=== PATIENT | male | born 1945 | race Caucasian/White ===

== ENCOUNTER 2018-05-11 13:57 | Emergency (ER) | payer MEDICARE, OTHER, SELFPAY ==
[2018-05-11] VITALS (11 sets, daily range): BP systolic 135–154; BP diastolic 62–90; PULSE 70–88; RESP 14–26; TEMP 36.5; O2SAT 92–98
--- NOTE | 2018-05-11 15:14 | ED.GENADUL_ITS ---
Discharge Plan Disposition Patient Disposition: HOME Discharge Details Chief Complaint: GenMedical Clinical Impression: Hypertension, Bilateral hand swelling, Sinus congestion Primary Care Provider: Eduard Merritt ED Provider: Jose Lopez Home Meds and New Rx's Prescriptions: Continue metformin 500 MG tablet 500 mg PO BID Qty: 180 RF: 3 atorvastatin [Lipitor] 80 MG tablet 80 mg PO QPM Qty: 90 RF: 3 nitroglycerin 0.4 MG tablet, sublingual 0.4 mg Sublingual PRN Qty: 25 RF: 6 Metoprolol Succinate 50 MG TAB.ER.24H 50 mg PO DAILY Qty: 90 RF: 3 indomethacin 50 MG capsule 50 mg PO TID PRNQty: 20 RF: 3 sildenafil (antihypertensive) [Revatio] 20 MG tablet 60 mg PO DAILY PRNQty: 30 RF: 2 allopurinol 300 mg tablet 150 mg PO DAILY Qty: 45 RF: 3 aspirin 81 MG tablet,chewable 81 mg CH DAILY RF: 0 Discontinued ibuprofen 200 MG tablet 400 mg PO PRN RF: 0 Discharge Instructions Instructions: Hypertension (ED) Additional Instructions: Your creatinine level was elevated today from prior. Your creatinine level today was 1.42 today. Avoid taking antihistamines including Zyrtec given concerns for adverse reaction. Please contact your primary care physician to arrange follow-up. Repeat labs will need to be done and followed up by your doctor. Return to the ER for any worsening or new concerning symptoms. Referrals: Eduard Merritt DO [Primary Care Provider] - Medical Decision Making 73-year-old male with multiple medical problems including hypertension, here with sinus congestion since yesterday that did not improve his Zyrtec. No sinus tendernes, fever or signs of focal bacterial infection. Patient notes that he had some swelling of his hands bilaterally today and is concerned this may be a side effect of the Zyrtec. No rash or airway edema. Hands no longer swollen. Patient neglected to take his antihypertensive medication this morning and had elevated blood pressure today. He did take prescribed antihypertensives around 130 this afternoon and blood pressure has improved. I suspect hypertension was related to medication noncompliance but given recent hand swelling, consider acute renal insufficiency. Screening labs were checked and creatinine is slightly elevated at 1.42 (this has increased from prior 1.0 on 09/24/14). Plan to have patient maintain compliance with antihypertensive medication. He has outpatient follow-up scheduled at [place] early next month. I advised him to follow-up with PCP sooner to determine timing of repeat labs. Disposition decision was made weighing the risks and benefits of hospitalization versus outpatient treatment, the risk for further decompensation , and the patient's wishes. The patient was stable and requested discharge. Prior to discharge, my usual and customary return precautions were reviewed with the patient - this included follow-up instructions and reason to return to the emergency department if condition worsens, does not improve as expected, or other new concerns arise. HPI General Mode of arrival: ambulatory . Date/Time Provider Initiated Documentation: 05/11/18 14:50 . Limitations to Documentation: no limitations . Information obtained by: patient and family . HPI Narrative: 73-year-old male with mulitple medical problems including history of HTN, here with chief complaint of sinus congestion. Patient notes that he started to experience sinus congestion last night. He notes that he has been fatigued and generally not feeling well. He took some Zyrtec last night to help with sinus congestion. This did not relieve his symptoms. Patient noted he had some hand swelling this morning. And swelling has improved. No associated rash. Patient also notes that today's blood pressure was quite elevated with a systolic of 220. He forgot to take his prescribed antihypertensive this morning. He did take it today around 130 and blood pressure has improved. He denies associated chest pain or shortness of breath. Related Data Home Medications Medication Instructions Recorded Confirmed aspirin 81 mg CH DAILY 08/18/12 05/11/18 metformin 500 mg PO BID #180 tab 10/10/17 05/11/18 atorvastatin [Lipitor] 80 mg PO QPM #90 tab 12/01/17 05/11/18 nitroglycerin 0.4 mg SUBLINGUAL PRN #25 tab 12/01/17 05/11/18 indomethacin 50 mg PO TID PRN #20 cap 12/08/17 05/11/18 sildenafil (antihypertensive) 60 mg PO DAILY PRN #30 tab-cap 12/08/17 05/11/18 [Revatio] allopurinol 300 mg tablet 150 mg PO DAILY #45 tab 02/24/18 05/11/18 Previous Rx's Medication Instructions Recorded metformin 500 mg PO BID #180 tab 10/10/17 atorvastatin [Lipitor] 80 mg PO QPM #90 tab 12/01/17 nitroglycerin 0.4 mg SUBLINGUAL PRN #25 tab 12/01/17 allopurinol 300 mg tablet 150 mg PO DAILY #45 tab 02/24/18 Allergies Allergy/AdvReac Type Severity Reaction Status Date / Time simvastatin AdvReac Intermediate JOINT PAIN Unverified 05/11/18 14:12 MRI contrast media Allergy Unknown Uncoded 05/11/18 14:12 General Stated Complaint: GenMedical CONSTANTINO: 3 Review of Systems Review of Systems All systems reviewed & are unremarkable except as noted in HPI and below Cardiovascular Denies chest pain and Denies dyspnea Respiratory Denies dyspnea PFSH Family History Father Diabetes Mother No problems noted. Medical History Diabetes mellitus type 2 in obese Hypertension Social History Smoking/Tobacco Use Status: Former Tobacco Use Surgical History Coronary Stent (02/18/09) Repair of inguinal hernia (11/20/14) Exam Const General: cooperative and no acute distress HENMT Head: normocephalic and atraumatic Ears: external ears normal and TM's normal bilaterally General nose exam: external nose normal, nares normal and no nasal discharge Face and sinus: sinuses nontender Mouth: oral mucosae normal and moist mucous membranes Throat: posterior oropharynx normal Eyes Conjunctivae: normal conjunctivae Sclera: normal sclerae EOM: EOM intact bilaterally Resp Auscultation: clear to auscultation bilaterally, no rales, no rhonchi and no wheezes Cardio Jugular venous pressure: no JVD Rate: regular rate and not tachycardic Rhythm: regular rhythm Heart Sounds: murmur systolic I/ GI Palpation: soft, not firm, no guarding, no masses, not rigid and nontender Skin General skin exam: no rashes or lesions noted Neuro General: alert, awake, oriented x3 and tone normal Cranial Nerves: CN's II-XI intact bilaterally, PERRL and EOM intact bilaterally Cognition: normal cognition Speech: speech normal Motor: strength 5/5 throughout Sensory Exam: no sensory deficits noted Extrem General: no edema Psych Appearance: grossly normal Mental Status: mental status grossly normal Speech and Movement: speech and movement normal Course Vital Signs Temperature 36.5 C 11/22/18 14:07 Pulse 79 05/11/18 14:07 Respiratory Rate 16 05/11/18 14:07 Blood Pressure 154/90 H 05/11/18 14:07 Pulse Oximetry 98 05/11/18 14:07 Temperature 36.5 C 05/11/18 14:07 Temperature Source Skin 05/11/18 14:07 Pulse 79 05/11/18 14:07 Respiratory Rate 18 05/11/18 14:28 Respiratory Effort 05/11/18 14:28 Respiratory Depth Normal 05/11/18 14:28 Respiratory Pattern Normal 05/11/18 14:28 Blood Pressure 154/90 H 05/11/18 14:07 Blood Pressure Position Sitting 05/11/18 14:07 Pulse Oximetry 98 05/11/18 14:07 Oxygen Delivery Method Room Air 05/11/18 14:07 Oxygen Flow Rate 0 05/11/18 14:07 Pain Level 0 05/11/18 14:07
[2018-05-11 15:29] LABS: HCT 42.1 % (40.0-50.0); Mean Corp. HGB Concentration 33.3 g/dL (32.0-36.0); Mean Corpuscular Hemoglobin 32.6 pg (27.0-33.0); Mean Corpuscular Volume 97.9 fL (80-95); Mean Platelet Volume 8.7 fL (8.0-11.0); Platelet Count 213 x1000/uL (130-400); RBC Distribution Width 12.5 % (11.8-14.1); White Blood Cell Count 7.31 k/cumm (4.4-10.8)
--- NOTE | 2018-05-11 15:34 | NUR.NOTE ---
Assumed care of patient, ambulatory to restroom, steady gait, in no distress. VSS, updated. Call arthur in reach, will monitor.
[2018-05-11 15:36] LABS: Anion Gap 9.8 mmol/L (3-11); BUN 19 mg/dL (7-18); CO2 28.2 mmol/L (21.0-32.0); CREATININE 1.42 mg/dL (0.70-1.30); Chloride 100 mmol/L (98-107); Estimated GFR 49.01 (mL/min/1.73m2); Glucose 112 mg/dL (70-100); Potassium 3.9 mmol/L (3.5-5.1); Sodium 138 mmol/L (136-145)
== END 2018-05-11 16:10 | disposition home or self-care (01) ==
PROVIDERS: Emergency Provider Student in an Organized Health Care Education/Training Program; PCP Family Medicine
DX: I10 Essential (primary) hypertension (principal); R60.0 Localized edema; R09.81 Nasal congestion; R94.4 Abnormal results of kidney function studies; E11.9 Type 2 diabetes mellitus without complications; Z79.84 Long term (current) use of oral hypoglycemic drugs
CPT/HCPCS: 36415; 80048; 85027; 99284

== ENCOUNTER 2018-06-05 11:07 | Outpatient (CLI) | payer MEDICARE, OTHER, SELFPAY ==
--- NOTE | 2018-06-05 11:18 | DI.RAD_ITS ---
SYMPTOM/DIAGNOSIS: B/L HAND SWELLING POLYARTHRITIS, M13.0 BILATERAL HAND SERIES FOR INFLAMMATORY JOINT DISEASE: The bony structures are normally mineralized. There are mild periarticular degenerative changes involving the interphalangeal and carpal/metacarpal joints. There are no periarticular erosions or soft tissue calcifications and there is nothing to suggest inflammatory joint disease in this patient. These findings to be correlated with the physical examination and appropriate laboratory results.
[2018-06-05 13:09] LABS: C-Reactive Protein 2.91 mg/dL (0.0-0.3)
[2018-06-06 10:44] LABS: Rheumatoid Factor 9 IU/mL (<12.5)
[2018-06-06 12:22] LABS: Lyme Ab w Rflx to Lyme Confirm Negative
[2018-06-06 21:57] LABS: Anaplasma phagocytophilum Negative (Negative); B. miyamotoi PCR Negative (Negative); Babesia divergens/MO-1 Negative (Negative); Babesia duncani Negative (Negative); Babesia microti Negative (Negative); Ehrlichia chaffeensis Negative (Negative); Ehrlichia ewingii/canis Negative (Negative); Ehrlichia muris eauclairensis Negative (Negative)
== END 2018-06-05 11:27 ==
PROVIDERS: PCP Family Medicine; Visit Provider Family Medicine
DX: M19.041 Primary osteoarthritis, right hand; M19.042 Primary osteoarthritis, left hand; M13.0 Polyarthritis, unspecified; M79.89 Other specified soft tissue disorders
CPT/HCPCS: 36415; 73120; 86140; 86431; 86618; 87798

== ENCOUNTER 2018-08-08 18:13 | Outpatient (CLI) | payer MEDICARE, OTHER, SELFPAY ==
--- NOTE | 2018-08-08 10:42 | DI.RAD_ITS ---
SYMPTOMS/DIAGNOSIS: POLYARTHRALGIA, M25.50, GOUTY ARTHRITIS, M10.9, H/O GOUT 20 YRS, RECENT EPISODES OF MARIS JOINT SWELLING, PAIN, STIFFNESS IN HANDS, ? GOUT VS OTHER INFLAMMATORY ARTHROPLASTY VS RA RIGHT FOOT: Three views. No priors. The bones are intact and normally mineralized. No suspicious lytic or sclerotic lesions are seen. No acute fractures or subluxations are seen. The first metatarsal phalangeal joint is well maintained. No erosions are seen. No significant soft tissue swelling is seen about the first metatarsal phalangeal joint. The interphalangeal joints are well maintained. There is a small spur at the plantar surface of the calcaneus. Vascular calcifications are present. IMPRESSION: Grossly unremarkable right foot. No radiographic findings to suggest changes of gouty arthritis. LEFT FOOT: Three views. At the first metatarsal phalangeal joint there is mild joint space narrowing and periarticular spurring consistent with osteoarthritis. No erosions are seen. No significant joint swelling is seen about the foot to suggest gouty arthritic changes. At the interphalangeal joints of the foot there are varying degrees of joint space narrowing and periarticular spurring present. The metatarsal phalangeal joints are otherwise well maintained. The bones are intact and normally mineralized. Vascular calcifications are seen in the soft tissues. Mild degenerative changes are also noted at the articulation between the sesamoid and the first metatarsal head. IMPRESSION: Osteoarthritis of the left foot.
[2018-08-08 11:29] LABS: HCT 41.5 % (40.0-50.0); HGB 13.6 g/dL (13.5-17.5); Mean Corp. HGB Concentration 32.8 g/dL (32.0-36.0); Mean Corpuscular Hemoglobin 31.4 pg (27.0-33.0); Mean Corpuscular Volume 95.8 fL (80-95); Mean Platelet Volume 9.3 fL (8.0-11.0); Platelet Count 220 x1000/uL (130-400); RBC 4.33 m/cumm (4.50-6.00); RBC Distribution Width 13.5 % (11.8-14.1); White Blood Cell Count 6.86 k/cumm (4.4-10.8)
[2018-08-08 12:37] LABS: ESR 10 MM/HR (1-20)
[2018-08-08 13:29] LABS: ALT 26 U/L (12-78); AST 17 U/L (15-37); Albumin 3.8 g/dL (3.4-5.0); Alkaline Phosphatase 58 U/L (46-116); Anion Gap 7.6 mmol/L (3-11); BUN 23 mg/dL (7-18); Bilirubin, Total 0.7 mg/dL (0.2-1.0); CO2 28.4 mmol/L (21.0-32.0); CREATININE 0.81 mg/dL (0.70-1.30); Calcium 8.9 mg/dL (8.5-10.1); Chloride 105 mmol/L (98-107); Glucose 91 mg/dL (70-100); Potassium 4.6 mmol/L (3.5-5.1); Sodium 141 mmol/L (136-145); Total Protein 6.8 g/dL (6.4-8.2); Uric Acid 4.2 mg/dL (3.5-7.2)
[2018-08-09 10:26] LABS: Cyclic Citrullinated Peptide <2.5 U/mL (<5.0)
[2018-08-10 11:04] LABS: C-Peptide 5.8 ng/mL (1.1 - 4.4)
== END 2018-08-08 18:33 ==
PROVIDERS: PCP Family Medicine; Visit Provider Internal Medicine Rheumatology
DX: M25.50 Pain in unspecified joint (principal); M10.9 Gout, unspecified; N28.9 Disorder of kidney and ureter, unspecified; M79.671 Pain in right foot; M79.672 Pain in left foot; M19.072 Primary osteoarthritis, left ankle and foot
CPT/HCPCS: 36415; 80053; 85027; 85652; 86200; 73630; 84550; 84681

== ENCOUNTER 2020-07-07 02:08 | Outpatient (CLI) | payer MEDICARE, OTHER, SELFPAY ==
[2020-07-08 12:40] LABS: COVID-19 RT-PCR UVMMC Result Negative (Negative)
== END 2020-07-07 02:28 ==
PROVIDERS: PCP Family Medicine; Visit Provider Family Medicine
DX: Z20.822 Contact with and (suspected) exposure to COVID-19 (principal)
CPT/HCPCS: U0003

== ENCOUNTER 2020-11-20 03:10 | Outpatient (CLI) | payer MEDICARE, OTHER, SELFPAY ==
[2020-11-20 08:36] LABS: Calculated LDL 110 mg/dL (<100); Cholesterol 196 mg/dL (<200); HDL Cholesterol 54 mg/dL (40-60); Triglyceride 160 mg/dL (<150)
== END 2020-11-20 03:11 | disposition home or self-care (01) ==
LOC: LBO 03:10
PROVIDERS: PCP Family Medicine; Visit Provider Family Medicine
DX: I25.10 Atherosclerotic heart disease of native coronary artery without angina pectoris (principal)
CPT/HCPCS: 36415; 80061

== ENCOUNTER 2020-12-11 03:04 | Outpatient (CLI) | payer MEDICARE, OTHER, SELFPAY ==
--- NOTE | 2020-12-11 07:15 | DI.US_ITS ---
Exam(s) US AAA SCREENING EXAM: US AAA SCREENING CLINICAL HISTORY: SCREENING FOR AAA, FORMER SMOKER, Z87.891 COMPARISON: No exams were available for comparison FINDINGS: Abdominal Aorta: Proximal: 2.1 x 2.3 cm Mid: 1.8 x 2.1 cm Distal: 1.8 x 1.8 cm Iliac's: Right: 1.5 cm Left: 1.5 cm Mild plaque evident. IMPRESSION: No evidence of abdominal aortic aneurysm. DATA REPOSITORY:
== END 2020-12-11 03:24 ==
PROVIDERS: PCP Family Medicine; Visit Provider Family Medicine
DX: Z13.6 Encounter for screening for cardiovascular disorders (principal); Z87.891 Personal history of nicotine dependence
CPT/HCPCS: 76706

== ENCOUNTER 2024-01-23 16:14 | Emergency (ER) | payer MEDICARE, SELFPAY ==
[2024-01-23] VITALS (76 sets, daily range): BP systolic 74–170; BP diastolic 34–117; PULSE 52–71; RESP 8–24; TEMP 36.8; O2SAT 98
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
[2024-01-23 16:57] LABS: BE (Venous) -1 mmol/L (-2-3); HCO3 (Venous) 24 mmol/L (23-28); Lactate 1.8 mmol/L (0.6-1.4); O2 Sat (Venous) 68 %; TCO2 (Venous) 22 mmol/L (24-29); pCO2 (Venous) 38 mmHg (41-51); pO2 (Venous) 35 mmHg
[2024-01-23 17:06] LABS: Abs Immature Grans 0.13 10^3/uL (0.0-0.06); Absolute Basophil Count 0.04 10^3/uL (0.0-0.2); Absolute Monocyte Count 1.07 10^3/uL (0.1-0.8); Basophils % 0.3 %; Eosinophils % 0.5 %; HCT 40.9 % (40.0-50.0); HGB 13.6 g/dL (13.5-17.5); Immature Grans % 0.9 %; Lymphocytes % 11.4 %; MCH 33.5 pg (27.0-33.0); MCHC 33.3 % (32.0-36.0); MCV 101 fL (80-95); MPV 9.7 fL (8.0-11.0); Monocytes % 7.3 %; Neutrophils % 79.6 %; Platelet Count 198 10^3/uL (130-400); RBC 4.06 10^6/uL (4.36-5.78); RDW 13.2 % (11.8-14.1); RDW-SD 49.1 fL; WBC 14.59 10^3/uL (4.4-10.8)
[2024-01-23 17:07] LABS: Absolute Eosinophil Count 0.07 10^3/uL (0.0-0.7); Absolute Lymphocyte Count 1.66 10^3/uL (1.2-3.4); Absolute Neutrophil Count 11.61 10^3/uL (1.2-6.7)
[2024-01-23 17:19] LABS: ALT 39 U/L (16-63); AST 31 U/L (15-37); Albumin 3.7 g/dL (3.4-5.0); Alkaline Phosphatase 73 U/L (46-116); Anion Gap 9.5 mmol/L (3-11); BUN 22 mg/dL (7-18); Bilirubin, Total 0.49 mg/dL (0.2-1.0); CO2 24.5 mmol/L (21.0-32.0); CREATININE 1.5 mg/dL (0.70-1.30); Calcium 8.9 mg/dL (8.5-10.1); Chloride 106 mmol/L (98-107); Estimated GFR 47.65 (mL/min/1.73m2); Glucose 142 mg/dL (74-106); Lipase 40 U/L (16-77); Potassium 4.3 mmol/L (3.5-5.1); Sodium 140 mmol/L (136-145)
[2024-01-23 17:22] LABS: PTT Activated 23.4 sec (23.6-32.8); Prothrombin Time 10.2 sec (9.1-11.1)
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
[2024-01-23] MEDS: Normal Saline 1,000 ML 1000 ML IV (17:42)
[2024-01-23] MEDS: Lidocaine 2% Jelly 6 ML SYR (18:39)
[2024-01-23 19:32] LABS: Bilirubin Negative (Negative); Blood Trace-intact (Negative); Clarity Clear (Clear); Glucose 500 mg/dL (Negative); Ketones Negative (Negative); Leukocyte Esterase Negative (Negative); Nitrite Negative (Negative); Specific Gravity 1.015 (1.005-1.025); Urobilinogen 0.2 mg/dL (Up to 0.2); pH 5.5 (5-8)
[2024-01-23 19:34] LABS: Bacteria Negative HPF (Negative); Crystals Negative HPF (Negative)
[2024-01-23 19:45] LABS: WBC Negative HPF (0-5)
[2024-01-23 19:47] LABS: Epithelial Cells Rare HPF (Negative); Other Cells Negative (Negative); RBC 0-2 HPF (0-2)
[2024-01-23 19:48] LABS: C & S Indicated? No; Casts 0-2 Hyaline LPF (Negative); Mucus Negative (Negative)
[2024-01-23] MEDS: Ketorolac 15 MG/ML VIAL IVP (20:40)
[2024-01-23] MEDS: ACETAMINOPHEN 1,000 MG/100 ML BTL 400 MG IVPB (20:40)
[2024-01-24] VITALS: PULSE 54; RESP 15
[2024-01-24 00:01] VITALS: BP 137/68; PULSE 53; PULSE 55; RESP 13
[2024-01-24 00:10] VITALS: PULSE 56; RESP 14
[2024-01-24 00:16] VITALS: BP 144/72; PULSE 62
[2024-01-24 00:23] VITALS: O2SAT 98
[2024-01-24 20:20] LABS: Amylase 35 U/L (25-115)
== END 2024-01-24 00:27 | disposition short-term general hospital (02) ==
PROVIDERS: Emergency Provider Physician Assistant; PCP Family Medicine
DX: S32.012A Unstable burst fracture of first lumbar vertebra, initial encounter for closed fracture (principal); I10 Essential (primary) hypertension; I25.10 Atherosclerotic heart disease of native coronary artery without angina pectoris; E11.9 Type 2 diabetes mellitus without complications; E78.00 Pure hypercholesterolemia, unspecified; Z95.5 Presence of coronary angioplasty implant and graft; Z79.84 Long term (current) use of oral hypoglycemic drugs; W31.89XA Contact with other specified machinery, initial encounter; Y93.89 Activity, other specified; Y92.89 Other specified places as the place of occurrence of the external cause
CPT/HCPCS: 36415; 51702; 80053; 82805; 83690; 96361; 96374; 96375; 99285; 72131; 72192; 81003; 81015; 82150; 83605; 85025; 85610; 85730; J0131; J1885

== ENCOUNTER 2024-01-23 18:22 | Emergency (ER) | payer MEDICARE, SELFPAY | END 2024-01-23 18:47 | LOC: ER 01-24 11:49 | PROVIDERS: Emergency Provider Physician Assistant; PCP Family Medicine | DX: S32.001A Stable burst fracture of unspecified lumbar vertebra, initial encounter for closed fracture (principal); V85.5XXA Driver of special construction vehicle injured in nontraffic accident, initial encounter | CPT/HCPCS: 36415; 51702; 96361; 96374; 99285 ==

== ENCOUNTER 2024-03-19 18:13 | Outpatient (REF) | payer MEDICARE, SELFPAY ==
[2024-03-19 17:45] LABS: Abs Immature Grans 0.03 10^3/uL (0.0-0.06); Absolute Basophil Count 0.02 10^3/uL (0.0-0.2); Absolute Eosinophil Count 0.33 10^3/uL (0.0-0.7); Absolute Lymphocyte Count 2.61 10^3/uL (1.2-3.4); Absolute Monocyte Count 0.75 10^3/uL (0.1-0.8); Absolute Neutrophil Count 6.65 10^3/uL (1.2-6.7); Basophils % 0.2 %; Eosinophils % 3.2 %; HCT 29.8 % (40.0-50.0); HGB 9.4 g/dL (13.5-17.5); Immature Grans % 0.3 %; Lymphocytes % 25.1 %; MCH 32.3 pg (27.0-33.0); MCHC 31.5 % (32.0-36.0); MCV 102 fL (80-95); MPV 9.3 fL (8.0-11.0); Monocytes % 7.2 %; Platelet Count 291 10^3/uL (130-400); RBC 2.91 10^6/uL (4.36-5.78); RDW 13.2 % (11.8-14.1); RDW-SD 49.4 fL; WBC 10.39 10^3/uL (4.4-10.8)
[2024-03-19 17:55] LABS: ALT 19 U/L (16-63); AST 18 U/L (15-37); Albumin 3.2 g/dL (3.4-5.0); Alkaline Phosphatase 76 U/L (46-116); BUN 27 mg/dL (7-18); Bilirubin, Total 0.34 mg/dL (0.2-1.0); C-Reactive Protein 0.97 mg/dL (<or=0.5); Calcium 9.4 mg/dL (8.5-10.1); Chloride 100 mmol/L (98-107); Estimated GFR 77.04 (mL/min/1.73m2); Glucose 130 mg/dL (74-106); Sodium 135 mmol/L (136-145); Total Protein 7.4 g/dL (6.4-8.2)
== END 2024-03-19 18:14 | disposition home or self-care (01) ==
LOC: LBN 18:13
PROVIDERS: PCP Family Medicine; Visit Provider Internal Medicine Infectious Disease
DX: Z79.2 Long term (current) use of antibiotics (principal)
CPT/HCPCS: 80053; 85025; 86140

== ENCOUNTER 2024-07-19 05:10 | Observation (INO) | payer MEDICARE, SELFPAY ==
[2024-07-19] VITALS (50 sets, daily range): BP systolic 115–172; BP diastolic 46–70; PULSE 79–99; RESP 12–35; TEMP 35.9–37.2; O2SAT 89–100
--- NOTE | 2024-07-19 05:00 | RT.EKG_ITS ---
APPROVED REPORT Exam: Resting ECG Reason for Exam: short of breath Patient Location: E HR:83 bpm ECG Measurements Heart Rate 83 AXIS OH 171 P 4 QRSd 100 QRS -1 QT 393 T -32 QTc 462 Conclusion Sinus rhythm...normal P axis, V-rate 60- 99 Non-specific T-wave flattening somewhat globally without obvious pattern injury ischemia
--- NOTE | 2024-07-19 05:35 | NUR.NOTE ---
EKG order was put in prior to patient arriving to Emergency Department.
[2024-07-19 06:09] LABS: COVID-19 PCR Negative (Negative); Influenza A PCR Negative (Negative); Influenza B PCR Negative (Negative); RSV PCR Negative (Negative)
[2024-07-19 06:10] LABS: Source Nasopharynx
[2024-07-19 06:11] LABS: Abs Immature Grans 0.02 10^3/uL (0.0-0.06); Absolute Basophil Count 0.03 10^3/uL (0.0-0.2); Absolute Eosinophil Count 0.12 10^3/uL (0.0-0.7); Absolute Monocyte Count 0.58 10^3/uL (0.1-0.8); Absolute Neutrophil Count 5.77 10^3/uL (1.2-6.7); Basophils % 0.4 %; Eosinophils % 1.4 %; HCT 36.4 % (40.0-50.0); HGB 11.2 g/dL (13.5-17.5); Immature Grans % 0.2 %; Lymphocytes % 23.5 %; MCH 30.7 pg (27.0-33.0); MCHC 30.8 % (32.0-36.0); MCV 100 fL (80-95); MPV 10.2 fL (8.0-11.0); Monocytes % 6.8 %; Neutrophils % 67.7 %; Platelet Count 194 10^3/uL (130-400); RBC 3.65 10^6/uL (4.36-5.78); RDW 14.8 % (11.8-14.1); RDW-SD 53.8 fL; WBC 8.52 10^3/uL (4.4-10.8)
[2024-07-19 06:19] LABS: Lactate 1.2 mmol/L (<or=2.0)
[2024-07-19] MEDS: Albuterol/Ipratropium 3 ML UPD VIAL UPD ×2 (06:19→17:39)
[2024-07-19] MEDS: methylPREDNISolone SUCC 125 MG VIAL 60 MG IVP (06:19)
[2024-07-19 06:27] LABS: Anion Gap 8.1 mmol/L (3-11); BUN 24 mg/dL (7-18); CO2 26.9 mmol/L (21.0-32.0); CREATININE 1.4 mg/dL (0.70-1.30); Calcium 9.3 mg/dL (8.5-10.1); Chloride 109 mmol/L (98-107); Estimated GFR 51.45 (mL/min/1.73m2); Glucose 115 mg/dL (74-106); NT-proBNP 20791 pg/mL (<300); Potassium 4.1 mmol/L (3.5-5.1); Sodium 144 mmol/L (136-145); Troponin I 34 ng/L (<or=76)
--- NOTE | 2024-07-19 07:16 | ED.GENADUL_ITS ---
Discharge Plan Disposition Patient Disposition: Admit to [facility] Condition: Fair Discharge Details Chief Complaint: RespSymp Clinical Impression: LLL pneumonia, Congestive heart failure (CHF) Primary Care Provider: Eduard Merritt ED Provider: Kris Kemp Home Meds and New Rx's Prescriptions: No Action empagliflozin 25 mg tablet 12.5 mg PO DAILY Patient Comments: WENDIE is RXing this.HE metformin 500 mg tablet See Rx Instructions .ROUTE .COMPLEX Qty: 180 3RF Dose Instruction: TAKE ONE TABLET BY MOUTH TWICE A DAY FOR METABOLIC SYNDROME Rx Instructions: TAKE ONE TABLET BY MOUTH TWICE A DAY FOR METABOLIC SYNDROME metoprolol succinate 50 mg tablet extended release 24 hr 50 mg PO DAILY Qty: 90 3RF nitroglycerin 0.4 mg tablet, sublingual 0.4 mg Sublingual Q5-15M PRN (Reason: chest pain/angina) Qty: 25 6RF Rx Instructions: as directed for chest pressure, angina naproxen 500 mg tablet 500 mg PO BID PRN (Reason: pain) Qty: 60 1RF Rx Instructions: Take for non-gout pain atorvastatin [Lipitor] 80 mg tablet 80 mg PO QPM Qty: 90 3RF Rx Instructions: to control cholesterol acetaminophen 325 mg tablet See Rx Instructions PO Q6H PRN Rx Instructions: 3 tablets orally every 6 hours PRN; cholecalciferol (vitamin D3) 10 mcg (400 unit) capsule 20 mcg PO DAILY cyanocobalamin (vitamin B-12) 1,000 mcg tablet 1,000 mcg PO DAILY Lactobacillus acidophilus Capsule 10 mg PO DAILY lisinopril 20 mg tablet 20 mg PO DAILY polyethylene glycol 3350 17 gram/dose powder 17 g PO DAILY colchicine 0.6 mg tablet 0.6 mg PO DAILY sennosides-docusate sodium [Senna with Docusate Sodium] 8.6-50 mg tablet 2 tab-cap PO BID PRN tamsulosin 0.4 mg capsule 0.4 mg PO DAILY aspirin 81 MG tablet,chewable 81 mg CH DAILY allopurinol 300 mg tablet 300 mg PO DAILY HPI General Date/Time Provider Initiated Documentation: 07/19/24 05:20 . HPI Narrative: The patient is a 79-year-old male, who presents the emergency department this evening complaining of increasing shortness of breath over the course the last week. The patient states that yesterday he went shopping with his and walked 30 feet from his apartment into the home with 2 grocery bags and was so short of breath that he had to sit down and use his 's home oxygen to help himself recover. The patient reports that he has been having a significant amount of coughing over the course of the same timeframe. He felt like he was wheezing significantly both yesterday and again this morning. He was unable to sleep secondary to shortness of breath. The patient states that he is able to cough up phlegm which then makes him able to tolerate breathing a little bit better for a short period of time before he begins coughing again. The patient denies having any known fevers or chills. The patient says he feels like he has pneumonia, similar to when he was at [facility] last summer. Related Data Home Medications ?Medication ?Instructions ?Recorded ?Confirmed aspirin 81 mg chewable tablet 81 mg CH DAILY 08/18/12 07/19/24 naproxen 500 mg tablet 500 mg PO BID PRN pain #60 tabs 02/15/20 07/19/24 atorvastatin 80 mg tablet (Lipitor) 80 mg PO QPM #90 tabs 08/22/23 07/19/24 metformin 500 mg tablet See Rx Instructions .Route 09/05/23 07/19/24 .COMPLEX #180 tabs metoprolol succinate 50 mg 50 mg PO DAILY #90 tabs 09/05/23 07/19/24 tablet,extended release 24 hr nitroglycerin 0.4 mg sublingual 0.4 mg sublingual Q5-15M PRN chest 09/05/23 07/19/24 tablet pain/angina #25 tabs empagliflozin 25 mg tablet 12.5 mg PO DAILY 12/01/23 07/19/24 allopurinol 300 mg tablet 300 mg PO DAILY 01/23/24 07/19/24 Lactobacillus acidophilus 10 mg PO DAILY 03/16/24 07/19/24 acetaminophen 325 mg tablet See Rx Instructions PO Q6H PRN 03/16/24 07/19/24 cholecalciferol (vitamin D3) 10 20 mcg PO DAILY 03/16/24 07/19/24 mcg (400 unit) capsule colchicine 0.6 mg tablet 0.6 mg PO DAILY 03/16/24 07/19/24 cyanocobalamin (vitamin B-12) 1,000 mcg PO DAILY 03/16/24 07/19/24 1,000 mcg tablet lisinopril 20 mg tablet 20 mg PO DAILY 03/16/24 07/19/24 polyethylene glycol 3350 17 17 g PO DAILY 03/16/24 07/19/24 gram/dose oral powder sennosides 8.6 mg-docusate sodium 2 tab-cap PO BID PRN 03/16/24 07/19/24 50 mg tablet (Senna with Docusate Sodium) tamsulosin 0.4 mg capsule 0.4 mg PO DAILY 03/16/24 07/19/24 Previous Rx's ?Medication ?Instructions ?Recorded naproxen 500 mg tablet 500 mg PO BID PRN pain #60 tabs 02/15/20 atorvastatin 80 mg tablet (Lipitor) 80 mg PO QPM #90 tabs 08/22/23 metformin 500 mg tablet See Rx Instructions .Route 09/05/23 .COMPLEX #180 tabs metoprolol succinate 50 mg 50 mg PO DAILY #90 tabs 09/05/23 tablet,extended release 24 hr nitroglycerin 0.4 mg sublingual 0.4 mg sublingual Q5-15M PRN chest 09/05/23 tablet pain/angina #25 tabs Allergies Allergy/AdvReac Type Severity Reaction Status Date / Time simvastatin AdvReac Intermediate JOINT PAIN Verified 07/19/24 05:17 glimepiride AdvReac Diarrhea Verified 07/19/24 05:17 MRI contrast media Allergy Unknown unknown Uncoded 07/19/24 05:17 General Stated Complaint: RespSymp CONSTANTINO: 4 Exam Const General: cooperative and no acute distress Resp Effort & Inspection: normal respiratory effort and able to speak in complete sentences Auscultation: wheezes scattered wheezes Cardio Rate: regular rate Rhythm: regular rhythm GI Inspection: normal to inspection Palpation: soft Auscultation: normal bowel sounds Skin General skin exam: no rashes or lesions noted Lesions: no lesions Neuro General: patient alert, patient oriented x3, moves all extremities, no focal motor deficits and CN's II-XI intact bilaterally Extrem General: normal to inspection, full ROM and no edema Course Vital Signs Vital signs: Vital Signs Temperature 36.5 C 07/19/24 05:11 Pulse 89 07/19/24 05:11 Respiratory Rate 22 07/19/24 05:11 Blood Pressure 146/48 H 07/19/24 05:11 Pulse Oximetry 96 07/19/24 05:11 Temperature 36.5 C 07/19/24 05:11 Temperature Source Oral 07/19/24 05:11 Pulse 79 07/19/24 06:50 Pulse 80 07/19/24 06:50 Respiratory Rate 14 07/19/24 06:50 Respiratory Effort Short of Breath 07/19/24 05:18 Respiratory Depth Normal 07/19/24 05:18 Blood Pressure 163/46 H 07/19/24 06:47 Blood Pressure Mean 86 07/19/24 06:47 Blood Pressure Position Sitting 07/19/24 05:11 Pulse Oximetry 97 07/19/24 06:50 Oxygen Delivery Method Room Air 07/19/24 05:11 Oxygen Flow Rate 0 07/19/24 05:11 Pain Level 0 07/19/24 05:11 Lab/Test Results Lab/Test Results: 07/19/24 06:03 Blood Blood Culture - Pending 07/19/24 06:03 Blood Blood Culture - Pending Laboratory Tests Range/Units 07/19/24 07/19/24 05:15 06:03 WBC (4.4-10.8) 10^3/uL 8.52 RBC (4.36-5.78) 10^6/uL 3.65 L Hgb (13.5-17.5) g/dL 11.2 L Hct (40.0-50.0) % 36.4 L MCV (80-95) fL 100 H MCH (27.0-33.0) pg 30.7 MCHC (32.0-36.0) % 30.8 L RDW (11.8-14.1) % 14.8 H Plt Count (130-400) 10^3/uL 194 MPV (8.0-11.0) fL 10.2 Immature Gran % % 0.2 Neutrophils % % 67.7 Lymphocytes % % 23.5 Monocytes % % 6.8 Eosinophils % % 1.4 Basophils % % 0.4 Nucleated RBC % (0.0-0.3) % 0.0 Absolute Neutrophils (1.2-6.7) 10^3/uL 5.77 Absolute Lymphocytes (1.2-3.4) 10^3/uL 2.00 Absolute Monocytes (0.1-0.8) 10^3/uL 0.58 Absolute Eosinophils (0.0-0.7) 10^3/uL 0.12 Absolute Basophils (0.0-0.2) 10^3/uL 0.03 VBG Lactate (<or=2.0) mmol/L 1.2 Sodium (136-145) mmol/L 144 Potassium (3.5-5.1) mmol/L 4.1 Chloride (98-107) mmol/L 109 H Carbon Dioxide (21.0-32.0) mmol/L 26.9 Anion Gap (3-11) mmol/L 8.1 BUN (7-18) mg/dL 24 H Creatinine (0.70-1.30) mg/dL 1.4 H Est GFR (CKD-EPI 2020) (mL/min/1.73m2) 51.45 Glucose (74-106) mg/dL 115 H Calcium (8.5-10.1) mg/dL 9.3 Troponin I (<or=76) ng/L 34 NT-Pro-B Natriuret Pep (<300) pg/mL 70342 H COVID-19 Source Nasopharynx SARS-CoV-2 (PCR) (Negative) Negative Influenza Type A (PCR) (Negative) Negative Influenza Type B (PCR) (Negative) Negative RSV (PCR) (Negative) Negative Medical Decision Making The patient was seen and examined. His EKG represents normal sinus rhythm with a ventricular response rate of 83 bpm. There are some ST and T wave flattening globally throughout the tracing which is nonspecific but abnormal. There is also a nonspecific intraventricular conduction delay. The patient's coughing, phlegm production, and wheezing would be suggestive of a chronic bronchitis or pneumonia with decompensation. The patient is not a smoker and has not been for more than 50 years. He has no history of other obstructive lung pathology, making an infection more likely. The patient does have a elevated proBNP of unclear significance. The chest x-ray may better determine ongoing therapy for this patient. The patient's chest x-ray reveals both vascular cephalization which is consistent with congestive heart failure but also with what appears to be airs pace disease in the left lingula with air bronchograms. There is a sympathetic effusion in the left lung base. Clinically, the patient reports only modest improvement with the DuoNeb that was given to him previously. He continues to have wheezing and he desaturates into the 80s with merrily speaking to me at the bedside. I placed the patient on 2 L of nasal cannula oxygen. He will be given IV ceftriaxone and IV Zithromax for community-acquired pneumonia isolate. He will also be given 40 mg of IV Lasix to help promote diuresis to improve his lung function. Case was discussed with Dr. Coley for admission to the hospitalist service. Quality:[facility] Health Related Social Needs: No Data to Display [facility] All Active Problems (Updated 07/19/24 @ 07:40 by Kris Kemp MD) Congestive heart failure (CHF) (Chronic) LLL pneumonia (Acute) Burst fracture of lumbar vertebra with routine healing (Acute) Stable burst fracture of first lumbar vertebra, initial encounter for closed fracture (Acute ~01/2024) Diabetes mellitus (Acute 06/27/13) Left inguinal hernia (Acute 09/30/14) Reactive arthritis of hand (Chronic) Hypercholesterolemia (Chronic 02/17/09) LDL 104 [place] 07/2011 Gout (Chronic 06/20/89) pos FH father; feet, knees (08/18/12); allopurinol effective Essential hypertension (Chronic 09/03/13) Diabetes mellitus type 2 in nonobese (Chronic 06/27/13) 06/27/13: dx [facility]; A1c 6.7; and random BS 207 No retinopathy 06/16/15 [facility] Coronary atherosclerosis of [place] coronary vessel (Chronic 02/17/09) thrombolytics, DART, DEStents X3, plavix 1 yr: DONE 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 [facility] in 2010; repeat 07/2015 [facility], 2 polyps Atherosclerosis of [place] coronary artery of [place] heart without angina pectoris (Chronic 02/17/09) thrombolytics, DART, DEStents X3, plavix 1 yr: DONE; last ETT 07/2011 neg for ischemia Abnormal fasting glucose (Chronic 06/27/13) 06/27/13: dx [facility]; A1c 6.7; and random BS 207 No retinopathy 06/16/15 [facility] History (Updated 07/19/24 @ 07:40 by Kris Kemp MD) Hypertension Diabetes mellitus type 2 in obese Surgical History (System 01/24/24 @ 08:44 by Fatemeh Valente) Repair of inguinal hernia (11/20/14) amin Coronary Stent (02/18/09) KARMEN X 3 Family History (System 01/24/24 @ 08:44 by Fatemeh Valente) Father , cirrhosis at age 81. Diabetes Mother , liver problems at age 76. No problems noted. Social History (System 01/24/24 @ 08:44 by Fatemeh Valente) Smoking/Tobacco Use Status: Never Smoking risk assessment performed?: Yes Alcohol Intake: former Drug use: Never Substance use type: does not use Household members: spouse Housing: house Communication Needs: Hard of Hearing and Corrective Lenses Current gender identity: male What is your relationship status?: Panel score (0-1 are the most socially isolated patients): 1 What type of physical activity do you participate in: none Seatbelt use: always Drive intox or ride w/intox recycle driver: No Working smoke detector in home: Yes Fire extinguisher in home: Yes Carbon monox detector in home: Yes Do you feel safe at home: Yes Do you feel safe in your relationship?: Yes
--- NOTE | 2024-07-19 07:27 | DI.RAD_ITS ---
Exam(s) XR CHEST 2V PA LATERAL EXAM: XR CHEST 2V PA LATERAL CLINICAL HISTORY: cough, shortness of breath. TECHNIQUE: 2D digital imaging was performed. COMPARISON: No exams were available for comparison FINDINGS: 2 views: Heart size is upper normal. The mediastinum is not widened. There is infiltrate in the left lower lobe and a small-moderate sized left pleural effusion. Right l erica is clear. IMPRESSION: Left lower lobe infiltrate and small-moderate size left pleural effusion. First read by Keila BUSBY [facility] Final report called by myself to [facility] nurse-practitioner 07/19/2024 2:18 p.m. DATA REPOSITORY: RADIATION DOSE DELIVERED:
[2024-07-19 07:36] LABS: Troponin I 30 ng/L (<or=76)
--- NOTE | 2024-07-19 08:16 | DI.VRAD_ITS ---
PROCEDURE INFORMATION: Exam: XR Chest Exam date and time: 07/19/2024 7:19 AM Age: 79 years old Clinical indication: Cough and shortness of breath; Cough, shortness of breath. TECHNIQUE: Imaging protocol: Radiologic exam of the chest. Views: 2 views. COMPARISON: No relevant prior studies available. FINDINGS: Lungs: Atelectasis of the left lower lobe. Diffuse increase in interstitial lung markings. Pleural spaces: Blunting of the left costophrenic angle. Heart/Mediastinum: Cardiomegaly. Bones/joints: Unremarkable. IMPRESSION: Findings suggestive of CHF, alternatively could represent left lower lobe pneumonia with parapneumonic effusion. Correlate clinically. Dictated and Authenticated by: John Esqueda MD. Orderin Justo Ponce MD
[2024-07-19] MEDS: AZITHROMYCIN 500 MG in Normal Saline 250 ML 250 MG IVPB (08:34)
[2024-07-19] MEDS: cefTRIAXone 1 GM/50 ML BAG IVPB (08:35)
[2024-07-19] MEDS: Furosemide 40 MG/4 ML VIAL IVP (08:35)
--- NOTE | 2024-07-19 09:13 | HPE_ITS ---
Date of service: 07/19/24 Time of Service: 09:14 Assessment and Plan Assessment and plan (1) Congestive heart failure (CHF): Status: Chronic Assessment and plan: BNP was over 20,000 in the setting of pleural effusion shortness of breath and most likely HFrEF as per echo results Will continue Lasix 20 Mg IV push twice daily the patient received 40 IV push in the ED. Echo results were: Conclusion Mildly dilated left ventricle. Normal left ventricular wall thickness. Ejection fraction is 35%. There is global hypokinesis Normal right ventricular size and function Both atria are moderately enlarged Aortic valve is sclerotic and trileaflet. Mild aortic stenosis, mean gradient 11 mmHg. Trace aortic regurgitation Mild to moderate mitral and tricuspid regurgitation Estimated right ventricular systolic pressure is 64 mmHg Mildly dilated ascending aorta Cardiology consult ordered Will hold metoprolol succinate in the setting of abrupt drop in LVEF to 35% with shortness of breath Patient now on telemetry (2) LLL pneumonia: Status: Acute Assessment and plan: Continue ceftriaxone and azithromycin IV Strep pneumo, Legionella, mycoplasma pneumonia pending Blood cultures pending (3) Diabetes mellitus: Status: Acute Assessment and plan: Continue Glucs before meals and at bedtime with SSI coverage (4) Pleural effusion, left: Status: Acute Assessment and plan: Left-sided pleural effusion most likely due to heart failure. If the effusion worsens other causes would have to be considered and wished to proceed to CT of the patient's chest and consider surgical consult. (5) Elevated d-dimer: Status: Acute Assessment and plan: D-dimer over 1999 was likely caused by clotting disorder such as PE or DVT but can also be caused by infection for this patient. In the setting of ongoing O2 requirement CTA is to be considered to rule out a PE versus VQ scan if this is renal function does not allow for CTA (6) Essential hypertension: Status: Chronic Assessment and plan: Continue home medicine regimen Will hold lisinopril in the setting of increased creatinine from baseline 1.0- 1.4 Metoprolol tartrate held in the setting of LVEF 35% (7) On deep vein thrombosis (DVT) prophylaxis: Status: Acute Assessment and plan: On low molecular weight heparin subcut Discussed with Dr. Coley History of Present Illness History of Present Illness Chief Complaint: SOB , cough Narrative: This 79 years old male patient with a past medical history of hypertension, diabetes type 2, coronary artery disease in 2008 with 3 stent placements presented to the ED at [facility] for evaluation of increased productive cough with worsening shortness of breath over the course of the last week but yesterday the patient was unable to ambulate 30 feet without having to stop and using his 's oxygen to treat his shortness of breath. The patient reported increased wheezing and inability to sleep. The patient denied fevers, chills or night sweats. Workup in the ED was significant for a negative upper respiratory infection viral panel. There was absence of leukocytosis, chemistry was unremarkable except for a creatinine at 1.4 from baseline 1.0, BNP was over 20,000. Troponins were negative x 2 with EKG negative for injury; there was ST wave flattening that is not usually seen. Chest x-ray showed a left lower lobe infiltrate most likely pointing to pneumonia and left sided pleural effusion. In the ED the patient received DuoNebs with minimal improvement; IV Lasix was also given. The patient continued to necessitate oxygen supplementation. The hospitalist was consulted and the patient admitted to the medical surgical floor for sepsis, left lower lobe pneumonia, pleural effusion, KAYY, and CHF exacerbation. A D-dimer was added as well as a stat echocardiogram. When seen, the patient confirmed his full CODE STATUS. The patient describes symptoms as reported above. Also mention that he is not a smoker but he has been using is 's oxygen for the past 2 night to help him with his shortness of breath. The patient reported increased production of clear sputum denied dizziness, chest pain, nausea vomiting or dysuria. The patient mentioned living alone with his with his daughter who lives nearby coming to help them during the week. Also mention repeating his back last year at the lumbar level. Review of Systems All systems reviewed & are unremarkable except as noted in HPI and below PFSH All Active Problems (Updated 07/19/24 @ 23:55 by Jennifer Grace APRN) On deep vein thrombosis (DVT) prophylaxis (Acute) Elevated d-dimer (Acute) Pleural effusion, left (Acute) Congestive heart failure (CHF) (Chronic) LLL pneumonia (Acute) Burst fracture of lumbar vertebra with routine healing (Acute) Stable burst fracture of first lumbar vertebra, initial encounter for closed fracture (Acute ~01/2024) Diabetes mellitus (Acute 06/27/13) Left inguinal hernia (Acute 09/30/14) Reactive arthritis of hand (Chronic) Hypercholesterolemia (Chronic 02/17/09) LDL 104 [place] 07/2011 Gout (Chronic 06/20/89) pos FH father; feet, knees (08/18/12); allopurinol effective Essential hypertension (Chronic 09/03/13) Diabetes mellitus type 2 in nonobese (Chronic 06/27/13) 06/27/13: dx 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, 2 polyps Atherosclerosis of [place] coronary artery of [place] heart without angina pectoris (Chronic 02/17/09) thrombolytics, DART, DEStents X3, plavix 1 yr: DONE; last ETT 07/2011 neg for ischemia Abnormal fasting glucose (Chronic 06/27/13) 06/27/13: dx [facility]; A1c 6.7; and random BS 207 No retinopathy 06/16/15 Brian Medical History (Updated 07/19/24 @ 23:55 by Jennifer Grace APRN) Hypertension Diabetes mellitus type 2 in obese Surgical History (System 01/24/24 @ 08:44 by Fatemeh Valente) Repair of inguinal hernia (11/20/14) amin Coronary Stent (02/18/09) KARMEN X 3 Family History (System 01/24/24 @ 08:44 by Fatemeh Valente) Father , cirrhosis at age 81. Diabetes Mother , liver problems at age 76. No problems noted. Social History (System 01/24/24 @ 08:44 by Fatemeh Valente) Smoking/Tobacco Use Status: Never Smoking risk assessment performed?: Yes Alcohol Intake: former Drug use: Never Substance use type: does not use Household members: spouse Housing: house Communication Needs: Hard of Hearing and Corrective Lenses Current gender identity: male What is your relationship status?: Panel score (0-1 are the most socially isolated patients): 1 What type of physical activity do you participate in: none Seatbelt use: always Drive intox or ride w/intox tanker driver: No Working smoke detector in home: Yes Fire extinguisher in home: Yes Carbon monox detector in home: Yes Do you feel safe at home: Yes Do you feel safe in your relationship?: Yes Meds Allergies and Home Medications Allergies Allergy/AdvReac Type Severity Reaction Status Date / Time simvastatin AdvReac Intermediate JOINT PAIN Verified 07/19/24 05:17 glimepiride AdvReac Diarrhea Verified 07/19/24 05:17 MRI contrast media Allergy Unknown unknown Uncoded 07/19/24 05:17 Home Medications ?Medication ?Instructions ?Recorded ?Confirmed ?Type aspirin 81 mg chewable tablet 81 mg CH DAILY 08/18/12 07/19/24 History naproxen 500 mg tablet 500 mg PO BID PRN pain #60 tabs 02/15/20 07/19/24 Rx atorvastatin 80 mg tablet (Lipitor) 80 mg PO QPM #90 tabs 08/22/23 07/19/24 Rx metformin 500 mg tablet See Rx Instructions .Route 09/05/23 07/19/24 Rx .COMPLEX #180 tabs metoprolol succinate 50 mg 50 mg PO DAILY #90 tabs 09/05/23 07/19/24 Rx tablet,extended release 24 hr nitroglycerin 0.4 mg sublingual 0.4 mg sublingual Q5-15M PRN chest 09/05/23 07/19/24 Rx tablet pain/angina #25 tabs empagliflozin 25 mg tablet 12.5 mg PO DAILY 12/01/23 07/19/24 History allopurinol 300 mg tablet 300 mg PO DAILY 01/23/24 07/19/24 History Lactobacillus acidophilus 10 mg PO DAILY 03/16/24 07/19/24 History acetaminophen 325 mg tablet See Rx Instructions PO Q6H PRN 03/16/24 07/19/24 History cholecalciferol (vitamin D3) 10 20 mcg PO DAILY 03/16/24 07/19/24 History mcg (400 unit) capsule colchicine 0.6 mg tablet 0.6 mg PO DAILY 03/16/24 07/19/24 History cyanocobalamin (vitamin B-12) 1,000 mcg PO DAILY 03/16/24 07/19/24 History 1,000 mcg tablet lisinopril 20 mg tablet 20 mg PO DAILY 03/16/24 07/19/24 History polyethylene glycol 3350 17 17 g PO DAILY 03/16/24 07/19/24 History gram/dose oral powder sennosides 8.6 mg-docusate sodium 2 tab-cap PO BID PRN 03/16/24 07/19/24 History 50 mg tablet (Senna with Docusate Sodium) tamsulosin 0.4 mg capsule 0.4 mg PO DAILY 03/16/24 07/19/24 History Exam Narrative Exam Narrative: Constitutional The patient is still short of breath during discussion speaks 3-5 word sentences, cooperative Eyes: Well aligned, intact ROM Neck: Normal ROM, no meningeal signs Neuro:alert and oriented to self, person, place time and situation. No neurological focal deficit, PERRLA Chest:Chest is symmetrical and normal appearance Resp: labored breathing during discussion, scaterred wheezing, decreased left lower lung field Cardio: regular rhythm, S1, S2, no murmur, positive pulses to all 4 extremities, GI: Abdomen is not distended, soft and non tender, bowel sounds are present : Negative Costovertebral angle tenderness Back/spine/Pelvis: No back tenderness, normal alignment Integumentary: No skin lesions or rash on exposed skin Extremities: strength 5/5 to bilateral lower and upper extremities Psych: RASS 0, congruent mood and normal affect. Results Labs 07/19/24 05:15 07/19/24 05:15 Labs: Laboratory Results - last 24 hr 07/19/24 07/19/24 07/19/24 05:15 06:03 07:06 WBC 8.52 RBC 3.65 L Hgb 11.2 L Hct 36.4 L MCV 100 H MCH 30.7 MCHC 30.8 L RDW 14.8 H Plt Count 194 MPV 10.2 Immature Gran % 0.2 Neutrophils % 67.7 Lymphocytes % 23.5 Monocytes % 6.8 Eosinophils % 1.4 Basophils % 0.4 Nucleated RBC % 0.0 Absolute Neutrophils 5.77 Absolute Lymphocytes 2.00 Absolute Monocytes 0.58 Absolute Eosinophils 0.12 Absolute Basophils 0.03 VBG Lactate 1.2 Sodium 144 Potassium 4.1 Chloride 109 H Carbon Dioxide 26.9 Anion Gap 8.1 BUN 24 H Creatinine 1.4 H Est GFR (CKD-EPI 2020) 51.45 Glucose 115 H Calcium 9.3 Troponin I 34 30 NT-Pro-B Natriuret Pep H COVID-19 Source Nasopharynx SARS-CoV-2 (PCR) Negative Influenza Type A (PCR) Negative Influenza Type B (PCR) Negative RSV (PCR) Negative Last Vital Signs Temp 36.5 C 07/19/24 05:11 Pulse 37 L 07/19/24 09:10 Resp 26 H 07/19/24 09:00 BP 172/63 H 07/19/24 08:46 Pulse Ox 98 07/19/24 09:00 Time Spent Time spent with Patient: >75 minutes Time was spent: preparing to see the patient(eg.review tests), obtaining and/or reviewing separately otained hiistory, ordering medications,tests, procedures, referring, communicating with other health managed care manager, indepentently interpreting results, counseling the patient and care coordination
[2024-07-19 10:06] LABS: Troponin I 27 ng/L (<or=76)
[2024-07-19 10:29] LABS: D-Dimer 2292 ng/mlFEU (<500)
--- NOTE | 2024-07-19 10:30 | DI.US_ITS ---
APPROVED REPORT EXAM: Comprehensive 2D, Doppler, and color-flow Echocardiogram Patient Location: ER Room/Bed: 7 Business Support Professional: Aj Manuel RDCS (AE) Indications: CHF Conclusion Mildly dilated left ventricle. Normal left ventricular wall thickness. Ejection fraction is 35%. T here is global hypokinesis Normal right ventricular size and function Both atria are moderately enlarged Aortic valve is sclerotic and trileaflet. Mild aortic stenosis, mean gradient 11 mmHg. Trace aortic regurgitation Mild to moderate mitral and tricuspid regurgitation Estimated right ventricular systolic pressure is 64 mmHg Mildly dilated ascending aorta Wall motion Left Ventricle Left ventricle is mildly dilated. Left ventricular systolic function is decreased. There is normal le ft ventricular wall thickness. There is global hypokinesis of the left ventricle. There is no ventric ular septal defect visualized. LVEF is 35%. Right Ventricle The right ventricle is normal size. The right ventricular systolic function is normal. Atria Left atrium is moderately dilated. Right atrium is moderately dilated. The interatrial septum is inta ct with no evidence for an atrial septal defect. Aortic Valve The Aortic valve is sclerotic. Aortic valve is probably trileaflet. There is mild aortic stenosis. Me an gradient is 11 mmHg Trace aortic regurgitation. Mitral Valve The mitral valve is normal in structure. No evidence of mitral valve stenosis. Mild to moderate zora l regurgitation. Tricuspid Valve The tricuspid valve is normal in structure. There is no tricuspid valve stenosis. Mild to moderate tr icuspid regurgitation. The RVSP is 64.3 mmHg. Pulmonic Valve The pulmonary valve is normal in structure. There is no pulmonic valvular stenosis. Mild pulmonic reg urgitation. Great Vessels The aortic root is normal in size. The ascending aorta is mildly dilated. Aortic arch is not well vis ualized. The IVC collapses <50% with inspiration. Pericardium There is no pericardial effusion. Moderate left pleural effusion. 2D Dimensions IVSD d PLAX 1.00 cm M: 0.6-1.2 Ao Root d 3.22 cm M: 3.1 - 3.7 LVPW d PLAX 1.00 cm M: 0.6 - 1.2 Ao Asc Diam d 3.56 cm M: 2.6 - 3.4 LVID d PLAX 6.22 cm M: 4.2 - 5.8 LVDs 5.26 cm M: 2.5 - 4.0 LV EF Teichholz 32.0 % FS 15.48 % LV EDV (Teich) 195.3 mL LV ESV (Teich) 132.7 mL Stroke Vol Index (Teich) 32.75 Auto EF LV EDV A4C 211.2 mL LV EDV A2C 199.2 mL LV EDV BP 203.9 mL LV ESV A4C 138.8 mL LV ESV A2C 136.4 mL LV ESV BP 135.9 mL LVEF(%) A4C 34.3 % LVEF(%) A2C 31.5 % LVEF(%) BP 33.3 % LV SV A4C 72.4 ml LV SV A2C 62.8 ml LV SV BP 68.0 ml LV CO A4C 6.3 L/min LV CO A2C 5.5 L/min LV CO BP 5.9 L/min HR A4C 87.55 BPM HR A2C 87.81 BPM LV EDV Index (BP) LA Volume LA Length A4C 6.3 cm LA Length A2C 6.4 cm LA Area A4C s 22.99 cm2 LA Area A2C s 29.17 cm2 LA Vol A4C A-L 71.61 mL LA Vol A2C A-L 113.19 mL LA Vol Biplane A-L 90.9 mL LA Vol/BSA A4C A-L LA Vol/BSA A2C A-L LA Vol/BSA BP A-L 47.6 mL/m2 LA Vol A4C MOD 67.2 mL LA Vol A2C MOD 112.0 mL LA Vol BP MOD 87.2 mL RA Volume RA Area A4C 18.9 cm2 RA ESV A4C (A-L) 59.7mL RA Vol/BSA A4C A-L RA Length A4C 5.1 cm RA ESV A4C (MOD) 55.3mL LV Diastology MV E Vmax 1.00 (0.4-1.3 m/s) Aortic Valve AoV Vmax 2.22 m/s LVOT Vmax 1.14 m/s AoV Peak Grad 51.3 mmHg LVOT Peak Grad 5.2 mmHg AoV Area (Vmax) 1.58 cm2 LVOT VTI 0.210 m AoV VTI 0.414 m LVOT Mean Grad 2.6 mmHg AoV Mean Jarrod. 1.62 m/s LVOT SV 64.47 mL AoV Mean Grad 11.4 mmHg LVOT Diam s 1.95 cm AoV Area (VTI) 1.56 cm2 AV Regurg Peak Gr. 19.68 mmHg Velocity Ratio 0.51 AR Decel Bertie 8.2m/sec2 AR DT 554 msec AR PHT 161 msec AR Vmax 4.55 m/s Mitral Valve MV Vmax TIPS 0.99 m/s MV Mean Grad 1.9 (<2mmHg) MV VTI 0.235 m Pulmonary Valve PV Vmax 0.93 (0.5-1.5 m/s) RVOT Vmax 0.46 m/s PV Peak Grad 3.5 mmHg RVOT Peak Gr. 0.9 mmHg PV Mean Jarrod 0.60 m/s RVOT VTI 0.086 m PV Mean Grad 1.7 mmHg RVOT Mean Gr. 0.6 mmHg Tricuspid Valve RA Pressure 8.00 mmHg TR Vmax 3.82 m/s TR Peak Grad 58.3 mmHg RVSP (TR) 64.3 mmHg
--- NOTE | 2024-07-19 10:52 | W.PC.ACHO ---
Registration Status: Primary Language: Preferred Language: ED Information & Data Chief Complaint RespSymp 07/19/24 07:19 Triage Note BIBA for difficulty 07/19/24 05:11 breathing, congestion and cold symptoms x1 week, on EMS arrival o2 in low 90s, put on 2L NC, on arrival to ED 96 RA. Denies chest pain. States doesn't usually get winded walking to his truck and has been in the last week. Has been using wifes O2 off and on at night. RATOPRINTER mucinex. 20g R AC Medical / Surgical History (This Medical Record has been edited. Action required.) Hypertension Diabetes mellitus type 2 in obese (This Medical Record has been edited. Action required.) Repair of inguinal hernia (11/20/14) Coronary Stent (02/18/09) Most Recent Vital Signs Temperature 36.5 C 07/19/24 05:11 Temperature Source Oral 07/19/24 05:11 Pulse 37 L 07/19/24 09:10 Pulse 92 H 07/19/24 09:00 Respiratory Rate 26 H 07/19/24 09:00 Respiratory Effort Short of Breath 07/19/24 05:18 Respiratory Depth Normal 07/19/24 05:18 Blood Pressure 172/63 H 07/19/24 08:46 Blood Pressure Mean 104 07/19/24 08:46 Blood Pressure Position Sitting 07/19/24 05:11 Pulse Oximetry 98 07/19/24 09:00 Oxygen Delivery Method Nasal Cannula 07/19/24 08:54 Oxygen Flow Rate 2 07/19/24 08:54 Pain Level 0 07/19/24 05:11 Allergies simvastatin Adverse Reaction (Intermediate, Verified 07/19/24 05:17) JOINT PAIN glimepiride Adverse Reaction (Verified 07/19/24 05:17) Diarrhea MRI contrast media Allergy (Unknown, Uncoded 07/19/24 05:17) unknown Has metal within his body (clamps) Precautions Isolation Standard precaution 07/19/24 05:17 IV IV Catheter Type [Right Peripheral IV Antecubital] IV Catheter Gauge [Right 20 Antecubital] Diagnostics 07/19/24 07/19/24 07/19/24 Range/Units 09:50 09:33 07:06 WBC (4.4-10.8) 10^3/uL RBC (4.36-5.78) 10^6/uL Hgb (13.5-17.5) g/dL Hct (40.0-50.0) % MCV (80-95) fL MCH (27.0-33.0) pg MCHC (32.0-36.0) % RDW (11.8-14.1) % Plt Count (130-400) 10^3/uL MPV (8.0-11.0) fL Immature Gran % % Neutrophils % % Lymphocytes % % Monocytes % % Eosinophils % % Basophils % % Nucleated RBC % (0.0-0.3) % Absolute Neutrophils (1.2-6.7) 10^3/uL Absolute Lymphocytes (1.2-3.4) 10^3/uL Absolute Monocytes (0.1-0.8) 10^3/uL Absolute Eosinophils (0.0-0.7) 10^3/uL Absolute Basophils (0.0-0.2) 10^3/uL D-Dimer 2292 H (<500) ng/mlFEU VBG Lactate (<or=2.0) mmol/L Sodium (136-145) mmol/L Potassium (3.5-5.1) mmol/L Chloride (98-107) mmol/L Carbon Dioxide (21.0-32.0) mmol/L Anion Gap (3-11) mmol/L BUN (7-18) mg/dL Creatinine (0.70-1.30) mg/dL Est GFR (CKD-EPI 2020) (mL/min/1.73m2) Glucose (74-106) mg/dL Calcium (8.5-10.1) mg/dL Troponin I 27 30 (<or=76) ng/L NT-Pro-B Natriuret Pep (<300) pg/mL COVID-19 Source SARS-CoV-2 (PCR) (Negative) Influenza Type A (PCR) (Negative) Influenza Type B (PCR) (Negative) RSV (PCR) (Negative) 07/19/24 07/19/24 Range/Units 06:03 05:15 WBC 8.52 (4.4-10.8) 10^3/uL RBC 3.65 L (4.36-5.78) 10^6/uL Hgb 11.2 L (13.5-17.5) g/dL Hct 36.4 L (40.0-50.0) % MCV 100 H (80-95) fL MCH 30.7 (27.0-33.0) pg MCHC 30.8 L (32.0-36.0) % RDW 14.8 H (11.8-14.1) % Plt Count 194 (130-400) 10^3/uL MPV 10.2 (8.0-11.0) fL Immature Gran % 0.2 % Neutrophils % 67.7 % Lymphocytes % 23.5 % Monocytes % 6.8 % Eosinophils % 1.4 % Basophils % 0.4 % Nucleated RBC % 0.0 (0.0-0.3) % Absolute Neutrophils 5.77 (1.2-6.7) 10^3/uL Absolute Lymphocytes 2.00 (1.2-3.4) 10^3/uL Absolute Monocytes 0.58 (0.1-0.8) 10^3/uL Absolute Eosinophils 0.12 (0.0-0.7) 10^3/uL Absolute Basophils 0.03 (0.0-0.2) 10^3/uL D-Dimer (<500) ng/mlFEU VBG Lactate 1.2 (<or=2.0) mmol/L Sodium 144 (136-145) mmol/L Potassium 4.1 (3.5-5.1) mmol/L Chloride 109 H (98-107) mmol/L Carbon Dioxide 26.9 (21.0-32.0) mmol/L Anion Gap 8.1 (3-11) mmol/L BUN 24 H (7-18) mg/dL Creatinine 1.4 H (0.70-1.30) mg/dL Est GFR (CKD-EPI 2020) 51.45 (mL/min/1.73m2) Glucose 115 H (74-106) mg/dL Calcium 9.3 (8.5-10.1) mg/dL Troponin I 34 (<or=76) ng/L NT-Pro-B Natriuret Pep 48920 H (<300) pg/mL COVID-19 Source Nasopharynx SARS-CoV-2 (PCR) Negative (Negative) Influenza Type A (PCR) Negative (Negative) Influenza Type B (PCR) Negative (Negative) RSV (PCR) Negative (Negative) 07/19/24 09:33 Blood Culture - Pending Blood 07/19/24 07:50 Blood Culture - Pending Blood Intake and Output - 24 Hour Total 07/19/24 05:04 thru 07/19/24 10:47 Intake Total 550 Output Total 600 Balance -50 Weight 77.111 kg Intake: IV 300 Oral 250 Output: Urine 600 Falls Risk Assessment History of Falls No History 07/19/24 05:18 Contributing Factors No Factors 07/19/24 05:18 Ambulatory Aids Independent 07/19/24 05:18 Tubes/Lines None 07/19/24 05:18 Gait Evaluation No gait disturbance 07/19/24 05:18 Cognition No cognitive impairment 07/19/24 05:18 Fall Total Score 0 07/19/24 05:18 Level of Risk Standard/Low Risk 07/19/24 05:18 Problems (This Medical Record has been edited. Action required.) Congestive heart failure (CHF) (Chronic) LLL pneumonia (Acute) Notes 07/19/24 05:35 Nursing Notes by Myra Covarrubias EKG order was put in prior to patient arriving to Emergency Department. Initialized on 07/19/24 05:35 - END OF NOTE v v v v v v v v v Sending and/or Receiving Nurses: Please use comment section below to note any information pertinent to the patient hand-off not included above. Information / Comments: Report received from:Coby Smith RN Reviewed documented HR from 0910 this am (HR 37 bpm) Khang Smith RN reports this was entered in error. Hr's have been in the 80's.
--- NOTE | 2024-07-19 15:13 | W.INDIABCONS ---
Date of service: 07/20/24 Time of Service: 10:00 Diabetes Inpatient Consult Reason for Visit: diabetes mgt/education consult. DESCRIPTION/ASSESSMENT: 79yo male pt anticipating dishcharge today. treated for CHF, PNA pleural effusion , elevated d-dimer and HTN. Hx of DMII with most recent A1C last march <6% takes metformin and jardiance at home. INTERVENTION: pt declined MNT/education around diabetes - feels like he has a handle on what he needs to eat, just doesn't follow 100% PLAN: pt has my contact info to contact with any needs for nutrition education Time Spent in Nutritional Counseling and Treatment: 5 min
[2024-07-19] MEDS: Tamsulosin 0.4 MG CAPCR PO (15:15)
[2024-07-19] MEDS: Aspirin 81 MG CHEW CH (15:15)
[2024-07-19] MEDS: Metoprolol CR 50 MG TABCR PO (15:15)
[2024-07-19] MEDS: Empaglifozin 25 MG TAB 12.5 MG PO (16:43)
[2024-07-19] MEDS: Insulin Aspart 300 UNITS/3 ML PEN SC (17:19)
[2024-07-19] MEDS: Furosemide 20 MG/2 ML VIAL IVP (22:19)
[2024-07-19] MEDS: Atorvastatin 40 MG TAB 80 MG PO (22:21)
[2024-07-19] MEDS: Normal Saline Flush 10 ML SYR IVP (22:22)
[2024-07-20] MEDS: Albuterol/Ipratropium 3 ML UPD VIAL UPD ×2 (00:04→05:52)
[2024-07-20] MEDS: Enoxaparin 40 MG/0.4 ML SYR SC (00:16)
[2024-07-20 04:00] VITALS: BP 111/58; PULSE 83; RESP 18; TEMP 36.6; O2SAT 92
[2024-07-20 07:50] VITALS: BP 129/55; PULSE 87; RESP 16; TEMP 36.7; O2SAT 92
--- NOTE | 2024-07-20 09:31 | PDOC.CMIN ---
Date of service: 07/20/24 Time of Service: 09:31 Care Management Initial Assmt Advance Directives Advance Directives: Do you have an Advance Directive: Y 11/12/20 13:26 AD On File at [facility]: N 10/29/19 15:38 Date Asked 03/19/24 03/19/24 16:03 AD Date Reviewed 07/19/24 07/19/24 11:20 COLST On File at [facility] COLST Date Scanned Code Status Resuscitation Status Full Code Care Team Visit Care Team Role Provider Type Eduard Merritt DO Primary Care Provider OSTEOPATHIC DOCTOR Lakshmi Cisse RDN, CDCES Other Providers IT TECHNICAL SPECIALIST Babs Lopez Other Providers IT TECHNICAL SPECIALIST Bety Loja Other Providers OTHER Danilo Galvan RDN Other Providers IT TECHNICAL SPECIALIST Kris Kemp MD Emergency Provider [facility] Leonides Coley MD Admit Provider [facility] Attending Provider Social Determinants of Health Screening Social Determinants of Health last assessed: 07/20/24 Will the Patient Participate in the Screening?: Yes Do you worry about having a steady place to live?: no Problems where you live: no known problems In the past 12 months, have you had to go without electric, gas, oil or water in your home?: no Have you or anyone in your house had to go without enough food to eat?: no Has lack of transportation kept you from medical appointments or from doing things needed for daily living?: no Has anyone in your life made you feel unsafe or unsupported?: no How hard is it for you to pay for the very basics like food, housing, medical care, and heating? Would you say it is:: Not hard at all Do you want help finding or keeping work or a job?: I do not need or want help If for any reason you need help with day-to-day activities such as bathing, preparing meals, shopping, managing finances, etc., do you get the help you need?: I don?t need any help How often do you feel lonely or isolated from those around you?: Never Do you speak a language other than Taiwanese at home?: No Does the patient want assistance with any of the above?: Yes Social Determinants of Health Comments(SDOH Details): Pt receives meals on wheels at his home. PFSH All Active Problems (Updated 07/19/24 @ 23:55 by Jennifer Grace APRN) On deep vein thrombosis (DVT) prophylaxis (Acute) Elevated d-dimer (Acute) Pleural effusion, left (Acute) Congestive heart failure (CHF) (Chronic) LLL pneumonia (Acute) Burst fracture of lumbar vertebra with routine healing (Acute) Stable burst fracture of first lumbar vertebra, initial encounter for closed fracture (Acute ~01/2024) Diabetes mellitus (Acute 06/27/13) Left inguinal hernia (Acute 09/30/14) Reactive arthritis of hand (Chronic) Hypercholesterolemia (Chronic 02/17/09) LDL 104 [place] 07/2011 Gout (Chronic 06/20/89) pos FH father; feet, knees (08/18/12); allopurinol effective Essential hypertension (Chronic 09/03/13) Diabetes mellitus type 2 in nonobese (Chronic 06/27/13) 06/27/13: dx [facility]; A1c 6.7; and random BS 207 No retinopathy [facility] Coronary atherosclerosis of [place] coronary vessel (Chronic 02/17/09) thrombolytics, DART, DEStents X3, plavix 1 yr: DONE 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 [facility] in 2010; repeat 07/2015 [facility], 2 polyps Atherosclerosis of [place] coronary artery of [place] heart without angina pectoris (Chronic 02/17/09) thrombolytics, DART, DEStents X3, plavix 1 yr: DONE; last ETT 07/2011 neg for ischemia Abnormal fasting glucose (Chronic 06/27/13) 06/27/13: dx [facility]; A1c 6.7; and random BS 207 No retinopathy 06/16/15 [facility] Medical History (Updated 07/19/24 @ 23:55 by Jennifer Grace APRN) Hypertension Diabetes mellitus type 2 in obese Surgical History (System 01/24/24 @ 08:44 by Fatemeh Valente) Repair of inguinal hernia (11/20/14) amin Coronary Stent (02/18/09) KARMEN X 3 Family History (System 01/24/24 @ 08:44 by Fatemeh Valente) Father , cirrhosis at age 81. Diabetes Mother , liver problems at age 76. No problems noted. Social History (System 01/24/24 @ 08:44 by Fatemeh Valente) Smoking/Tobacco Use Status: Never Smoking risk assessment performed?: Yes Alcohol Intake: former Drug use: Never Substance use type: does not use Household members: spouse Housing: house Communication Needs: Hard of Hearing and Corrective Lenses Current gender identity: male What is your relationship status?: Panel score (0-1 are the most socially isolated patients): 1 What type of physical activity do you participate in: none Seatbelt use: always Drive intox or ride w/intox driver engineer: No Working smoke detector in home: Yes Fire extinguisher in home: Yes Carbon monox detector in home: Yes Do you feel safe at home: Yes Do you feel safe in your relationship?: Yes
[2024-07-20] MEDS: Tamsulosin 0.4 MG CAPCR PO (09:52)
[2024-07-20] MEDS: Cholecalciferol (Vitamin D3) 400 UNIT TAB 800 UNIT PO (09:52)
[2024-07-20] MEDS: Allopurinol 300 MG TAB PO (09:52)
[2024-07-20] MEDS: Aspirin 81 MG CHEW CH (09:53)
[2024-07-20] MEDS: Empaglifozin 25 MG TAB 12.5 MG PO (09:53)
[2024-07-20] MEDS: Lisinopril 20 MG TAB PO (09:53)
[2024-07-20] MEDS: Lactobacillus Acidophilus CAP 1 CAP PO (09:53)
[2024-07-20] MEDS: cefTRIAXone 1 GM/50 ML BAG IVPB (09:55)
[2024-07-20] MEDS: Furosemide 20 MG/2 ML VIAL IVP (09:58)
--- NOTE | 2024-07-20 10:03 | IN_ITS ---
PT Notes Visit Reasons: Sepsis, CAP, CHF, hypoxic resp. fail., KAYY Physical Therapy Inpatient Initial Evaluation Date: 07/20/2024 Referring Doctor: Jennifer Grace NP PT Orders: PT CONSULT: Eval for assistive device Precautions: Fall. Standard. Activity as tolerated. Patient Profile/Admitting Diagnosis: Johnathon is a 79-year-old male admitted for management of CHF with EF of 35%, left lower lobe pneumonia, DM, pleural effusion on the left, elevated D-dimer, and essential hypertension. Receiving outpatient PT services for low back rehabilitation related to L1 burst fracture. PMHX: All Active Problems (Updated 07/19/24 @ 23:55 by Jennifer Grace APRN) On deep vein thrombosis (DVT) prophylaxis (Acute) Elevated d-dimer (Acute) Pleural effusion, left (Acute) Congestive heart failure (CHF) (Chronic) LLL pneumonia (Acute) Burst fracture of lumbar vertebra with routine healing (Acute) Stable burst fracture of first lumbar vertebra, initial encounter for closed fracture (Acute ~01/2024) Diabetes mellitus (Acute 06/27/13) Left inguinal hernia (Acute 09/30/14) Reactive arthritis of hand (Chronic) Hypercholesterolemia (Chronic 02/17/09) LDL 104 [place] 07/2011 Gout (Chronic 06/20/89) pos FH father; feet, knees (08/18/12); allopurinol effective Essential hypertension (Chronic 09/03/13) Diabetes mellitus type 2 in nonobese (Chronic 06/27/13) 06/27/13: dx [facility] [place]; A1c 6.7; and random BS 207 No retinopathy 06/16/15 [facility] Coronary atherosclerosis of [place] coronary vessel (Chronic 02/17/09) thrombolytics, DART, DE Stents X3, plavix 1 yr: DONE 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 [facility] in 2010; repeat 07/2015 [facility] [place], 2 polyps Atherosclerosis of [place] coronary artery of [place] heart without angina pectoris (Chronic 02/17/09) thrombolytics, DART, DEStents X3, plavix 1 yr: DONE; last ETT 07/2011 neg for ischemia Abnormal fasting glucose (Chronic 06/27/13) 06/27/13: dx [facility] [place]; A1c 6.7; and random BS 207 No retinopathy 06/16/15 [facility] Medical History (Updated 07/19/24 @ 23:55 by Jennifer Grace APRN) Hypertension Diabetes mellitus type 2 in obese Surgical History (System 01/24/24 @ 08:44 by Fatemeh Valente) Repair of inguinal hernia (11/20/14) amin Coronary Stent (02/18/09) KARMEN X 3 Social History/Home Situation: Lives with in a priavte home with 5 steps to enter. Independent with all aspects of ADLs prior to admission. Equipment Owned/DME: F[facility], [facility] Subjective: Feels so much better today. Happy to have walked in the hallway and seen how good he did. Objective: General Observation: IV through R UE Mental Status: Alert and oriented as to person, place, time, and purpose. Able to pay attention, focus, and respond appropriately. Pain: Minimal pain in low back that did not limit today's ambulation activity Vital Signs: After walking 200 feet BP 153/61 mmHg, 97% on RA, 91 bpm ROM: Right Lower Extremity: Hip flexion WFL. Hip abduction WFL. Knee flexion WFL. Ankle dorsiflexion WFL. Ankle plantarflexion WFL. Left Lower Extremity: Hip flexion WFL. Hip abduction WFL. Knee flexion WFL. Ankle dorsiflexion WFL. Ankle plantarflexion WFL. Strength: Right Lower Extremity: Hip flexors 4/5. Hip abductors 4/5. Knee flexors 5/5. Knee extensors 4-/5. Ankle dorsiflexors 4/5. Ankle plantarflexors 4/5. Left Lower Extremity: Hip flexors 4/5. Hip abductors 4/5. Knee flexors 5/5. Knee extensors 4-/5. Ankle dorsiflexors 4/5. Ankle plantarflexors 4/5. Bed Mobility/Transfers: Rolling independent Supine to sit independent Sit to supine independent Sit to stand independent Stand to sit independent Bed to reclining chair independent Reclining chair to bed independent Gait: 300 feet using no assistive device with supervision only for IV naldo management. Minimal SOB needing a brief standing rest but overall did well. Balance: Static Sitting: Normal Dynamic Sitting: Normal Static Standing: Good Dynamic Standing: Good Special Tests: Mobility Limitations Standardized Measure [facility]-PAC 6 clicks Basic Mobility Inpatient Short Form: Raw Score: 24 CMS Score: 0% deficit 30-second chair rise score: 7x with SOB after activity that subsided with rest Informed Consent/Education: Patient was instructed in purpose of PT consult. Assessment: Patient presents with clinical signs and symptoms consistent with current/admitting diagnoses that have resulted to mobility limitations, gait instability, generalized weakness, and overall ADL decline as demonstrated by the following impairment level findings: 1. Decreased strength to B knee major muscle groups 2. Impaired activity tolerance 3. Shortness of breath Impairments are contributing to the following functional limitations: 1. Increased completion time for mobility ADL performance Patient is assessed as a 08353 moderate complexity based on the following: History: 79-year-old male with past medical history as indicated above Examination: Demonstrable impairment in strength, balance, and mobility level with underlying impairments and functional limitations as exhibited above Presentation: Stable Decision Makin moderate complexity Goals: Goals X1 week 1. Supine-Sit independent 2. Sit-Supine independent 3. Sit-Stand independent 4. Stand-Sit independent 5. Bed-Chair independent 6. Chair-Bed independent 7. Independent gait on level surface with use of no AD for at least 600 feet without report of pain nor dyspnea 8. Independent stair negotiation while holding onto B rails for at least 5 steps without report of pain nor dyspnea 9. Normal static and dynamic standing balance/tolerance Plan of Care/Treatment Plan: 1-2x/day, 7 days/week x 1 week. Plan of care has been reviewed with the HEAVY LIFT RIGGER providing the service under Physical Therapy direction. Initiate Physical Therapy intervention for pain management as needed, strengthening, bed mobility, transfers, gait, stairs, balance training, and use of assistive device. DISCHARGE RECOMMENDATIONS: Home with no services [] Home with services [specify] [X] Home with outpatient PT. Home with resumption of low back rehabilitation with outpatient PT. No assistive device needed. [] SNF for continued rehabilitation [] [] Intake Worker Care [] [] SNF versus LTC based on ability to participate and progress [] TREATMENT CODE/TIME: 92242 x 20 minutes for 1 unit, 82569 x 13 minutes for 1 unit (10:03?10:36). Thank you for the opportunity to participate in the care of this patient. Lisa Santos PT, DPT, CLT [facility] [place], [place]
[2024-07-20] MEDS: Cyanocobalamin 500 MCG TAB 1000 MCG PO (11:10)
--- NOTE | 2024-07-20 11:18 | W.PM.DS.N ---
Date of service: 07/20/24 Time of Service: 11:18 DS: Diagnosis Discharge Diagnosis (1) Congestive heart failure (CHF): Status: Chronic (2) LLL pneumonia: Status: Acute (3) Diabetes mellitus: Status: Acute (4) Pleural effusion, left: Status: Acute (5) Elevated d-dimer: Status: Acute (6) Essential hypertension: Status: Chronic Discharge Plan Disposition Patient Disposition: Home Condition: Improving Discharge Details Reason For Visit: Sepsis, CAP, CHF, hypoxic resp. fail., KAYY Admit Date/Time: 07/19/24 09:37 Admit Provider: Leonides Coley Attending Provider: Leonides Coley Primary Care Provider: Eduard Merritt [facility] Course Hospital Course: This is a 79-year-old male patient past medical history significant for coronary artery disease status post coronary artery stent placement diabetes mellitus type 2 hypercholesterolemia who presented to the emergency department with a 1 week history of shortness of breath occasional cough raising clear sputum. No fever no chills no chest pain his workup in the emergency department did show congestive heart failure. There is also a question of pneumonia on the x-ray so he was started on antibiotics but his clinical symptoms most consistent with heart failure. He was also started on diuresis. An echocardiogram showed ejection fraction of 35%. He has no oxygen requirements. He has been eating and drinking and feels like his symptoms are markedly improved. He is stable for discharge to home. He already takes lisinopril Metroprolol succinate and empagliflozin. He will be discharged home on spironolactone and furosemide. He will need close outpatient follow-up to follow kidney function and electrolytes especially potassium. He has completed 2 days of antibiotics to treat community-acquired pneumonia and will be discharged on Augmentin for 3 more days. Discharged home with no new services Discussed with Dr. Coley Home Meds and New Rx's Prescriptions: New furosemide [Lasix] 20 mg tablet 20 mg PO DAILY Qty: 30 0RF spironolactone 25 mg tablet 25 mg PO DAILY Qty: 30 0RF amoxicillin-pot clavulanate 875-125 mg tablet 1 tab PO BID Qty: 6 0RF Rx Instructions: start am on jul 21, 2024 Continued empagliflozin 25 mg tablet 12.5 mg PO DAILY Patient Comments: [facility] metformin 500 mg tablet See Rx Instructions .ROUTE .COMPLEX Qty: 180 3RF Dose Instruction: TAKE ONE TABLET BY MOUTH TWICE A DAY FOR METABOLIC SYNDROME Rx Instructions: TAKE ONE TABLET BY MOUTH TWICE A DAY FOR METABOLIC SYNDROME metoprolol succinate 50 mg tablet extended release 24 hr 50 mg PO DAILY Qty: 90 3RF nitroglycerin 0.4 mg tablet, sublingual 0.4 mg Sublingual Q5-15M PRN (Reason: chest pain/angina) Qty: 25 6RF Rx Instructions: as directed for chest pressure, angina naproxen 500 mg tablet 500 mg PO BID PRN (Reason: pain) Qty: 60 1RF Rx Instructions: Take for non-gout pain atorvastatin [Lipitor] 80 mg tablet 80 mg PO QPM Qty: 90 3RF Rx Instructions: to control cholesterol acetaminophen 325 mg tablet See Rx Instructions PO Q6H PRN Rx Instructions: 3 tablets orally every 6 hours PRN; cholecalciferol (vitamin D3) 10 mcg (400 unit) capsule 20 mcg PO DAILY cyanocobalamin (vitamin B-12) 1,000 mcg tablet 1,000 mcg PO DAILY Lactobacillus acidophilus Capsule 10 mg PO DAILY lisinopril 20 mg tablet 20 mg PO DAILY polyethylene glycol 3350 17 gram/dose powder 17 g PO DAILY colchicine 0.6 mg tablet 0.6 mg PO DAILY sennosides-docusate sodium [Senna with Docusate Sodium] 8.6-50 mg tablet 2 tab-cap PO BID PRN tamsulosin 0.4 mg capsule 0.4 mg PO DAILY aspirin 81 MG tablet,chewable 81 mg CH DAILY allopurinol 300 mg tablet 300 mg PO DAILY Discharge Instructions Instructions: Heart failure Additional Instructions: weigh yourself 3 times weekly in the morning and report a 5 pound weight gain to your doctor. take all your medication as prescribed. your ejection fracture on echocardigram is 35%, which is reduced. you should continue lisinopril, metoprolol succinate, empagliflozin and spironalactone and furosemide added as goal directed therapies in heart failure with reduced ejection fraction. you will need cardiology follow up, in addition to lab follow up to check kidney function and electrolytes, paulina potassium as this can be effected by these medications. please discuss with your doctor. Referrals: Rissa Dowell MD [ [facility]] - Eduard Merritt DO [Primary Care Provider] - Activity:: Activity as Tolerated Equipment/Supplies:: No Equipment Needed Diet:: Low Sodium Discharge Orders Discharge Orders: Discharge Order (Routine); Ordered 07/20/24 Ordered By: Maya Reid DS: Summary Time Spent with Patient providing and/or coordinating discharge services: Greater than 30 minutes Status at Discharge Functional status at discharge: independent ambulation Overall status at discharge: patient is progressing back to baseline Mental Status: mental status grossly normal Speech and Movement: speech and movement normal Mood: congruent mood Affect: normal affect Quality:SDOH Health Related Social Needs: No Data to Display Exam Narrative Exam Narrative: Well-appearing male of stated age in no acute distress head is atraumatic eyes nonicteric noninjected oral mucosas moist neck full range of motion no JVD cardiovascular regular rate and rhythm respirations even and unlabored diminished in the bases no wheezing no rhonchi abdomen benign extremities without edema skin is pink warm dry well-perfused neurologic awake alert oriented no focal deficits psychiatric appropriate mood and affect Psych Mental Status: mental status grossly normal Speech and Movement: speech and movement normal Mood: congruent mood Affect: normal affect DS: Data Vitals/I&O Vitals and I&O: Vital Signs Temperature 36.7 C 07/20/24 07:50 Temperature Source Temporal Artery Scan 07/20/24 07:50 Pulse 87 07/20/24 07:50 Pulse 88 07/19/24 10:50 Respiratory Rate 16 07/20/24 07:50 Respiratory Effort Non-Labored 07/19/24 11:31 Respiratory Depth Normal 07/19/24 11:31 Respiratory Pattern Normal 07/19/24 11:31 Blood Pressure 129/55 L 07/20/24 07:50 Blood Pressure Mean 104 07/19/24 08:46 Blood Pressure Position Sitting 07/19/24 05:11 Pulse Oximetry 92 07/20/24 07:50 Oxygen Delivery Method Room Air 07/20/24 07:50 Oxygen Flow Rate 0 07/20/24 07:50 Pain Level 0 07/20/24 07:50 Comment Pt arrived on 2 liters oxygen, high flow tubing. 07/19/24 11:31 Intake & Output 07/19/24 07/19/24 07/20/24 11:59 23:59 11:59 Intake Total 550 / 950 400 / 950 Output Total 1300 / 2350 1050 / 2350 1575 / 1575 Balance -750 / -1400 -650 / -1400 -1575 / -1575 Weight 89.4 kg 76.6 kg Intake: IV 300 / 300 Oral 250 / 650 400 / 650 Output: Urine 1300 / 2350 1050 / 2350 1575 / 1575 Other: Urine Color Pale Yellow Urine Appearance Clear Clear Urine Odor Normal None Comment Data Completed and Pending Labs on day of discharge: Labs from last 24 hours 07/19/24 07/19/24 07/19/24 23:41 23:40 19:25 Urine Legionella Ag Pending M. pneumoniae Source Pending M. pneumoniae (PCR) Pending Ur Strep pneumoniae Ag Pending 07/19/24 09:33 Blood Blood Culture - Pending Preliminary micro results at discharge 07/19/24 07:50 Blood Culture - Preliminary Blood NO GROWTH 24 HOURS 07/19/24 09:33 Blood Culture - Pending Blood PFSH All Active Problems (Updated 07/19/24 @ 23:55 by Jennifer Grace APRN) On deep vein thrombosis (DVT) prophylaxis (Acute) Elevated d-dimer (Acute) Pleural effusion, left (Acute) Congestive heart failure (CHF) (Chronic) LLL pneumonia (Acute) Burst fracture of lumbar vertebra with routine healing (Acute) Stable burst fracture of first lumbar vertebra, initial encounter for closed fracture (Acute ~01/2024) Diabetes mellitus (Acute 06/27/13) Left inguinal hernia (Acute 09/30/14) Reactive arthritis of hand (Chronic) Hypercholesterolemia (Chronic 02/17/09) LDL 104 [place] 07/2011 Gout (Chronic 06/20/89) pos FH father; feet, knees (08/18/12); allopurinol effective Essential hypertension (Chronic 09/03/13) Diabetes mellitus type 2 in nonobese (Chronic 06/27/13) 06/27/13: dx [facility]; A1c 6.7; and random BS 207 No retinopathy 06/16/15 [facility] Coronary atherosclerosis of [place] coronary vessel (Chronic 02/17/09) thrombolytics, DART, DEStents X3, plavix 1 yr: DONE 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; [facility], 2 polyps Atherosclerosis of [place] coronary artery of [place] heart without angina pectoris (Chronic 02/17/09) thrombolytics, DART, DEStents X3, plavix 1 yr: DONE; last ETT 07/2011 neg for ischemia Abnormal fasting glucose (Chronic 06/27/13) 06/27/13: dx [facility]; A1c 6.7; and random BS 207 No retinopathy 06/16/15 [facility] Medical History (Updated 07/19/24 @ 23:55 by Jennifer Grace APRN) Hypertension Diabetes mellitus type 2 in obese Surgical History (System 01/24/24 @ 08:44 by Fatemeh Valente) Repair of inguinal hernia (11/20/14) amin Coronary Stent (02/18/09) KARMEN X 3 Family History (System 01/24/24 @ 08:44 by Fatemeh Valente) Father , cirrhosis at age 81. Diabetes Mother , liver problems at age 76. No problems noted. Social History (System 01/24/24 @ 08:44 by Fatemeh Valente) Smoking/Tobacco Use Status: Never Smoking risk assessment performed?: Yes Alcohol Intake: former Drug use: Never Substance use type: does not use Household members: spouse Housing: house Communication Needs: Hard of Hearing and Corrective Lenses Current gender identity: male What is your relationship status?: Panel score (0-1 are the most socially isolated patients): 1 What type of physical activity do you participate in: none Seatbelt use: always Drive intox or ride w/intox bobcat driver/labor: No Working smoke detector in home: Yes Fire extinguisher in home: Yes Carbon monox detector in home: Yes Do you feel safe at home: Yes Do you feel safe in your relationship?: Yes Time Spent with Patient Time Spent with Patient: 45-69 minutes Time was spent: preparing to see the patient(eg.review tests), obtaining and/or reviewing separately otained hiistory, ordering medications,tests, procedures, indepentently interpreting results and counseling the patient
[2024-07-20] MEDS: AZITHROMYCIN 500 MG in Normal Saline 250 ML 250 MG IVPB (11:23)
[2024-07-20 11:28] VITALS: BP 130/55; PULSE 57; RESP 16; TEMP 36.5; O2SAT 98
--- NOTE | 2024-07-20 12:10 | PDOC.CMDIS ---
Date of service: 07/20/24 Time of Service: 12:10 LACE Index Scoring Tool Questions: Length of Stay (in days): 1 Was the patient admitted via the E.D.?: Yes Comorbidities: Diabetes w/o Complication and Congestive Heart Failure E.D. Visits: 3 Answers: Total Score: 10 Risk of Readmission: High Risk Care Management Discharge Plan Reason for Hospitalization: Sepsis, CAP Discharge Plan: Johnathon is discharged home with a plan to follow up with community providers. No new services are ordered. Private transportation was coordinated by pt. Patient/Family Education Needs: Review discharge instructions, limitations, medications and plan to follow up after discharge. Discuss ask me three. SDOH Health Related Social Needs: No Data to Display
[2024-07-20 22:02] LABS: Legionella Ag Detection Urine Negative (Negative)
[2024-07-24 18:22] LABS: Mycoplasma Pneumoniae PCR Negative (Negative); Specimen source sputum
== END 2024-07-20 12:50 | disposition home or self-care (01) ==
LOC: ER 07:40 → MS 11:17
PROVIDERS: Nurse Practitioner Acute Care; Admitting Provider Hospitalist; Emergency Provider Emergency Medicine Emergency Medical Services; PCP Family Medicine; Visit Provider Hospitalist
DX: I11.0 Hypertensive heart disease with heart failure (principal); I50.21 Acute systolic (congestive) heart failure; J18.9 Pneumonia, unspecified organism; E11.9 Type 2 diabetes mellitus without complications; I08.3 Combined rheumatic disorders of mitral, aortic and tricuspid valves; R79.1 Abnormal coagulation profile; I25.10 Atherosclerotic heart disease of native coronary artery without angina pectoris; Z95.5 Presence of coronary angioplasty implant and graft; N17.9 Acute kidney failure, unspecified; E78.00 Pure hypercholesterolemia, unspecified; Z79.84 Long term (current) use of oral hypoglycemic drugs
CPT/HCPCS: 00123; 36415; 80048; 87040; 87449; 87637; 93005; 93306; 94640; 96365; 96366; 96367; 96372; 96375; 96376; 97162; 97530; 99285; J1650; 71046; 83605; 83880; 84484; 85025; 85379; 87581; 87899; 93010; 94760; 99223; 99239; G0378; J0456; J0696; J1815; J1940; J1941; J2919; J3490; J7620

== ENCOUNTER → 2024-07-20 09:00 | Outpatient (BNVA) | payer MEDICARE, SELFPAY | PROVIDERS: PCP Family Medicine; Referring Provider Family Medicine; Visit Provider Internal Medicine Cardiovascular Disease ==

== ENCOUNTER 2024-08-03 07:48 | Outpatient (CLI) | payer MEDICARE, SELFPAY ==
--- NOTE | 2024-08-03 07:45 | RT.EKG_ITS ---
APPROVED REPORT Exam: Resting ECG Reason for Exam: cardiac evaluation Patient Location: O HR:89 bpm ECG Measurements Heart Rate 89 AXIS NM 165 P 67 QRSd 99 QRS -27 QT 343 T 9 QTc 418 Conclusion Sinus rhythm...normal P axis, V-rate 50- 9 right atrial enlargement...P >50mS, <-0.10mV V1 LVH with secondary repolarization abnormality...multi-LVH criteria, abnrm ST-T
== END 2024-08-03 07:49 | disposition home or self-care (01) ==
LOC: DI.CARD 07:49
PROVIDERS: PCP Family Medicine; Visit Provider Internal Medicine Cardiovascular Disease
DX: I25.10 Atherosclerotic heart disease of native coronary artery without angina pectoris
CPT/HCPCS: 93010

== ENCOUNTER → 2024-08-03 11:32 | Outpatient (BNVA) | payer MEDICARE, SELFPAY | PROVIDERS: PCP Family Medicine; Referring Provider Family Medicine; Visit Provider Internal Medicine Cardiovascular Disease | DX: I50.20 Unspecified systolic (congestive) heart failure (principal); I10 Essential (primary) hypertension; I25.10 Atherosclerotic heart disease of native coronary artery without angina pectoris | CPT/HCPCS: 93005; 99214 ==

== ENCOUNTER 2024-08-15 12:14 | Outpatient (REF) | payer MEDICARE, SELFPAY ==
[2024-08-15 13:13] LABS: Anion Gap 6.9 mmol/L (3-11); BUN 33 mg/dL (7-18); CO2 28.1 mmol/L (21.0-32.0); CREATININE 1.2 mg/dL (0.70-1.30); Calcium 10.1 mg/dL (8.5-10.1); Chloride 105 mmol/L (98-107); Glucose 118 mg/dL (74-106); NT-proBNP 3045 pg/mL (<300); Potassium 5.3 mmol/L (3.5-5.1); Sodium 140 mmol/L (136-145)
== END 2024-08-15 12:15 | disposition home or self-care (01) ==
LOC: LBN 12:14
PROVIDERS: PCP Family Medicine; Visit Provider Nurse Practitioner Family
DX: I10 Essential (primary) hypertension (principal); I50.9 Heart failure, unspecified; R03.1 Nonspecific low blood-pressure reading
CPT/HCPCS: 80048; 83880

== ENCOUNTER 2024-08-29 11:31 | Outpatient (REF) | payer MEDICARE, SELFPAY ==
[2024-08-29 15:36] LABS: Anion Gap 8.9 mmol/L (3-11); BUN 28 mg/dL (7-18); CO2 26.1 mmol/L (21.0-32.0); Calcium 9.6 mg/dL (8.5-10.1); Chloride 108 mmol/L (98-107); Estimated GFR 77.04 (mL/min/1.73m2); Glucose 91 mg/dL (74-106); NT-proBNP 8655 pg/mL (<300); Potassium 4.8 mmol/L (3.5-5.1); Sodium 143 mmol/L (136-145)
== END 2024-08-29 11:32 | disposition home or self-care (01) ==
LOC: LBN 11:31
PROVIDERS: PCP Family Medicine; Visit Provider Nurse Practitioner Family
DX: I50.9 Heart failure, unspecified (principal); I10 Essential (primary) hypertension; E88.810 Metabolic syndrome
CPT/HCPCS: 80048; 83880

== ENCOUNTER 2024-10-30 02:04 | Outpatient (CLI) | payer MEDICARE, SELFPAY ==
--- NOTE | 2024-10-30 08:15 | DI.MRI_ITS ---
Exam(s) MR LUMBAR SPINE WO EXAM: MR LUMBAR SPINE WO CLINICAL HISTORY: pain,stable burst fx 1st lumbar vertebrae,s32.011a. TECHNIQUE: Multiplanar multisequence MRI of the Lumbar spine was performed. COMPARISON: MR MRI LUMBAR SPINE WO CONTRAST (GENERIC) from 02/01/2024 CR,XR XR CHEST 2V PA LATERAL from 07/19/2024 FINDINGS: Bones: The last intervertebral disc space is designated the L5/S1 level for the numbering purpose of this examination. There has been further collapse of the L1 burst fracture since 02/01/2024. It [place] s, however, appears stable compared to the more recent chest x-ray from 07/19/2024. There is marked l oss of the height of the vertebral body anteriorly with anterior wedging and focal kyphosis at this l evel. There is retropulsion into the spinal canal. There is exaggeration of the kyphosis centered a t L1 secondary to the burst fracture of L1. Endplate degenerative signal changes are seen at multiple levels of the lower thoracic and lumbar spine, most marked at through L2-L3. There is a Schmorl's no de at the inferior endplate of T12. Cord: The conus tip ends at the L1 level. It is of normal size and signal intensity. T12-L1: No disc herniations or bulges are present. No central spinal canal or neural foraminal stenos is. L1-2: No disc herniations or bulges are present. There is retropulsion of the L1 vertebral body into the spinal canal but no significant central spinal canal stenosis results.There is dith-bg-qobducft b ilateral neural foraminal stenosis. L2-3: There is a mild diffuse disc bulge. No significant central spinal canal or right neural forami nal stenosis is seen. There is mild narrowing of the left neural foramen. L3-4: There is a small central disc herniation. There are mild degenerative changes of the facets. The findings result in vvzo-tr-znxgzqni central spinal canal stenosis. There is no significant neura l foraminal stenosis. L4-5: There is a mild diffuse disc bulge. There are degenerative changes of the facets. No central spinal canal or neural foraminal stenosis. L5-S1: Mild diffuse disc bulge is present. There are degenerative changes of the facets. No central spinal canal or neural foraminal stenosis. Soft tissues: The visualized SI joints and sacrum are well maintained. The paraspinal soft tissues ar e unremarkable. IMPRESSION: 1. When compared to the chest x-ray from 07/19/2024, there has been no significant change in the degre e of collapse of the L1 burst fracture. There is retropulsion of the vertebral body but no significa nt central spinal canal stenosis results. There is ljno-qm-ppoetoqq bilateral neural foraminal steno sis. 2. 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 The findings are most marked at L3-L4. 3. Exaggeration of the kyphosis centered at L1 secondary to the L1 burst fracture. DATA REPOSITORY:
== END 2024-10-30 02:24 ==
LOC: DI 02:05
PROVIDERS: PCP Family Medicine; Visit Provider Anesthesiology Pain Medicine
DX: S32.011D Stable burst fracture of first lumbar vertebra, subsequent encounter for fracture with routine healing (principal); X58.XXXD Exposure to other specified factors, subsequent encounter
CPT/HCPCS: 72148

== ENCOUNTER 2024-11-05 02:52 | Outpatient (CLI) | payer MEDICARE, SELFPAY ==
--- NOTE | 2024-11-05 09:30 | DI.US_ITS ---
APPROVED REPORT EXAM: Comprehensive 2D, Doppler, and color-flow Echocardiogram Patient Location: Out-Patient Industrial Maintenance Technician: Aj Manuel RDCS (AE) Indications: Recheck LV function, heart failure Conclusion Mildly dilated left ventricle. Ejection fraction is 35%. There is global hypokinesis Normal right ventricular size and function Moderately dilated left atrium. Mildly dilated right atrium Calcified and trileaflet aortic valve. Peak gradient is 24, mean 14 mmHg, mild aortic stenosis. Tra ce aortic regurgitation Normal mitral valve with moderate regurgitation Mild to moderate tricuspid regurgitation. Estimated right ventricular systolic pressure is 65 mmHg Ascending aorta measures 3.67 cm Wall motion Left Ventricle Left ventricle is mildly dilated. Left ventricular systolic function is moderately decreased. There i s normal left ventricular wall thickness. There is global hypokinesis of the left ventricle. There is no ventricular septal defect visualized. LVEF is 35%. Right Ventricle The right ventricle is normal size. Right ventricular systolic function is grossly normal. Atria Left atrium is moderately dilated. Right atrium is mildly dilated. The interatrial septum is intact w ith no evidence for an atrial septal defect. Aortic Valve Aortic valve is calcified. Aortic valve is trileaflet. Mild aortic stenosis. Trace aortic regurgitati on. Mitral Valve The mitral valve is normal in structure. No evidence of mitral valve stenosis. Moderate mitral regurg itation. Tricuspid Valve The tricuspid valve is normal in structure. There is no tricuspid valve stenosis. Mild to moderate tr icuspid regurgitation. Pulmonic Valve The pulmonary valve is normal in structure. There is no pulmonic valvular stenosis. Mild to moderate pulmonic regurgitation. Great Vessels The aortic root is normal in size. The ascending aorta is mildly dilated. Aortic arch is normal in ca liber. IVC is normal in size and collapses >50% with inspiration. Pericardium There is no pericardial effusion. 2D Dimensions IVSD d PLAX 1.12 cm M: 0.6-1.2 Ao Root d 3.23 cm M: 3.1 - 3.7 LVPW d PLAX 1.05 cm M: 0.6 - 1.2 Ao Asc Diam d 3.67 cm M: 2.6 - 3.4 LVID d PLAX 6.50 cm M: 4.2 - 5.8 LVDs 5.32 cm M: 2.5 - 4.0 LV EF Teichholz 37.0 % FS 18.27 % LV EDV (Teich) 216.4 mL LV ESV (Teich) 136.3 mL Stroke Vol Index (Teich) 41.90 M-Mode TAPSE 1.92 cm (M/F) >1.7 Auto EF LV EDV A4C 223.6 mL LV EDV A2C 193.2 mL LV EDV BP 208.5 mL LV ESV A4C 148.2 mL LV ESV A2C 124.7 mL LV ESV BP 136.7 mL LVEF(%) A4C 33.7 % LVEF(%) A2C 35.5 % LVEF(%) BP 34.4 % LV SV A4C 75.4 ml LV SV A2C 68.5 ml LV SV BP 71.8 ml LV CO A4C 5.9 L/min LV CO A2C 5.4 L/min LV CO BP 5.6 L/min HR A4C 77.93 BPM HR A2C 78.26 BPM LV EDV Index (BP) LA Volume LA Length A4C 5.5 cm LA Length A2C 6.2 cm LA Area A4C s 15.95 cm2 LA Area A2C s 19.07 cm2 LA Vol A4C A-L 39.46 mL LA Vol A2C A-L 50.03 mL LA Vol Biplane A-L 47.2 mL LA Vol/BSA A4C A-L LA Vol/BSA A2C A-L LA Vol/BSA BP A-L 24.7 mL/m2 LA Vol A4C MOD 38.0 mL LA Vol A2C MOD 49.3 mL LA Vol BP MOD 45.7 mL RA Volume RA Area A4C 12.9 cm2 RA ESV A4C (A-L) 28.9mL RA Vol/BSA A4C A-L RA Length A4C 4.9 cm RA ESV A4C (MOD) 28.1mL LV Diastology MV E' lateral 0.081 (>0.1 m/s) MV E Vmax 0.99 (0.4-1.3 m/s) MV E/E' LAT 12.31 (<14) MV A Vmax 0.55 (0.4-1.3 m/s) E/A Ratio 1.8 Aortic Valve AoV Vmax 2.44 m/s LVOT Vmax 1.13 m/s AoV Peak Grad 37.0 mmHg LVOT Peak Grad 5.1 mmHg AoV Area (Vmax) 1.77 cm2 LVOT VTI 0.252 m AoV VTI 0.533 m LVOT Mean Grad 3.1 mmHg AoV Mean Jarrod. 1.74 m/s LVOT SV 96.75 mL AoV Mean Grad 13.8 mmHg LVOT Diam s 2.20 cm AoV Area (VTI) 1.82 cm2 AV Regurg Peak Gr. 23.87 mmHg Velocity Ratio 0.46 AR Decel [place] 4.4m/sec2 AR DT 799 msec AR PHT 232 msec AR Vmax 3.54 m/s Mitral Valve MV DT 143 (160-240 msec) MR Vmax 4.74 m/s MV Vmax TIPS 1.00 m/s MR VTI 1.543 m MV Mean Grad 1.7 (<2mmHg) MR Peak Grad 89.7 mmHg MV VTI 0.271 m MR Mean Grad 56.9 mmHg MR PISA Radius 0.44 cm MR Aliasing Velocity 0.30 m/s Pulmonary Valve PV Vmax 1.16 (0.5-1.5 m/s) PV Peak Grad 5.4 mmHg PV Mean Jarrod 0.77 m/s PV Mean Grad 2.8 mmHg Tricuspid Valve RA Pressure 3.00 mmHg TR Vmax 3.92 m/s TV S' 0.14 m/s TR Peak Grad 61.4 mmHg RVSP (TR) 64.4 mmHg
== END 2024-11-05 03:12 ==
PROVIDERS: PCP Family Medicine; Visit Provider Internal Medicine Cardiovascular Disease
DX: I50.9 Heart failure, unspecified (principal); I36.1 Nonrheumatic tricuspid (valve) insufficiency
CPT/HCPCS: 93306

== ENCOUNTER → 2024-11-16 10:34 | Outpatient (BNVA) | payer MEDICARE, SELFPAY | PROVIDERS: PCP Family Medicine; Referring Provider Family Medicine; Visit Provider Internal Medicine Cardiovascular Disease | DX: I50.20 Unspecified systolic (congestive) heart failure (principal); I25.10 Atherosclerotic heart disease of native coronary artery without angina pectoris; I35.0 Nonrheumatic aortic (valve) stenosis | CPT/HCPCS: 99213 ==

== ENCOUNTER 2025-01-31 13:48 | Outpatient (CLI) | payer MEDICARE, SELFPAY ==
[2025-01-31 14:15] VITALS: BP 120/42; PULSE 69; RESP 18; TEMP 36.6; O2SAT 96
[2025-01-31 14:37] VITALS: PULSE 79; O2SAT 96
[2025-01-31 14:40] VITALS: PULSE 78; O2SAT 96
[2025-01-31 14:50] VITALS: PULSE 77; O2SAT 96
[2025-01-31] MEDS: Nerve Block Tray 1 EACH MC (14:57)
[2025-01-31] MEDS: Bupivacaine 0.5% Pres-Free 10 ML VIAL IJ (14:58)
[2025-01-31] MEDS: methylPREDNISolone ACETATE 40 MG/ML VIAL IJ (14:58)
[2025-01-31] MEDS: Lidocaine 2% Pres-Free 5 ML VIAL IJ (14:58)
--- NOTE | 2025-02-12 11:07 | PDOC.PAIN_ITS ---
Date of service: 01/31/25 Time of Service: 12:00 US Guided Injections Type of Ultrasound Guided Injection: Lower back Right and Middle back Right Quadratus muscle Trigger Point Injection Pre-Procedural Evaluation [place] Referral Patient has been referred to the [facility] for Tender[facility] over the QL on the right Pre-Procedural Pain Score Pre-procedural pain score: 6/10 Reason for Exam Pain in the right lower back Patient Interview Patient was interviewed and medical record reviewed: Yes There were no contraindications to performing an US guided procedure. Risks,expected side effects, potential benefits were reviewed. The patient consent form was signed and witnessed. Standard time out procedure was performed. Patient Safety No skin issues noted over the injection site Procedure Description Patient was placed in the prone position and the following Pulse Ox applied. Pre-Procedure ultrasound scanning performed using a Linear 9 MHz probe Site Preparation Chloroprep Local Anesthesia Skin and subcutaneous tissues anesthetized with: 3 mL of Lidocaine 2%. A 21 G 3.5 P[place]unk ultrasound needle was placed under live US guidance using an in-plane approach to the target area. After visualization of the needle tip at the target area Depo-Medrol 40mg per cc and Lidocaine 2% were used. Total of Injectate/Medication Note: 1 cc of Depomedrol and 4 cc of 2% Lidocaine Negative aspiration for blood. [place] were removed without difficulty. Ultrasound images were captured and stored. Patient Mental Status Patient was alert and awake during procedure Vital Signs Vital signs were stable throughout the procedure and recorded by nursing. Follow Up/Discharge Follow up plans and appointments were discussed with patient. Post procedure instruction was given as documented in nursing documentation. Discharge criteria met and patient discharged from [facility]: Yes Post Procedure Pain Post Procedure Pain: 1/10 Patient tolerated procedure well Procedure Outcome: Successful Non US Guided Injections Procedure Description Patient was placed in the prone position Post Procedure Pain Post Procedure Pain: 1/10 Coding Conscious Sedation used for procedure: No CPT Codes: TRIGGER Pt Inj 1-2 muscles - 07130 ([id number] ~G) Ultrasound - 05378 ([id number] ~G) Additional Codes: Visualization of the needle tip - Ultrasound images captured/stored: Yes ([id number]) Date of Service (34042) Date of service: 01/31/25 Diagnoses: Muscle pain
== END 2025-01-31 13:49 | disposition home or self-care (01) ==
LOC: PC 13:49
PROVIDERS: PCP Family Medicine; Visit Provider Preventive Medicine Occupational Medicine
DX: M79.18 Myalgia, other site (principal)
CPT/HCPCS: 20552; 76942; J0665; J1010

== ENCOUNTER → 2025-05-10 09:32 | Outpatient (BNVA) | payer MEDICARE, SELFPAY | PROVIDERS: PCP Family Medicine; Referring Provider Family Medicine; Visit Provider Internal Medicine Cardiovascular Disease | DX: I35.0 Nonrheumatic aortic (valve) stenosis (principal); I25.10 Atherosclerotic heart disease of native coronary artery without angina pectoris; I42.9 Cardiomyopathy, unspecified; I27.20 Pulmonary hypertension, unspecified; Z79.899 Other long term (current) drug therapy | CPT/HCPCS: 99214 ==